=== PATIENT | male | born 1985 | race Caucasian/White ===

== ENCOUNTER 2017-04-02 08:08 | Emergency (ER) | payer OTHER, MEDICAID ==
--- NOTE | 2017-04-02 08:33 | EDPHY ---
H & P Smoking Status: Current every day smoker Time Seen by Provider: 04/02/17 08:30 HPI/ROS: CHIEF COMPLAINT: Mental health hold for grave disability HISTORY OF PRESENT ILLNESS: Patient arrives from [facility] on a mental health hold for grave disability. He has history of schizoaffective disorder and according to the hold he believes that he is "president of the [place] president and [place]uk[place]inder of " and not sleeping and eating hemlock. Patient tells me he had vomiting and diarrhea last night and that is why he is here. He denies currently any acute medical complaints except some mild nausea. He is under a court order for long-term certification for treatment for mental illness. His current medications include lithium, Artane, Klonopin, and perphenazine. REVIEW OF SYSTEMS: Eye: no change in vision ENT: no sore throat Cardiac: no chest pain or syncope Pulmonary: no cough or SOB Abdomen: HPI Musculoskeletal: no back pain Skin: no rash Neuro: no headache Constitutional: no fever : no urinary symptoms A comprehensive 10 point review of systems is otherwise negative aside from elements mentioned in the history of present illness. PAST MEDICAL HISTORY: Schizoaffective disorder per psych DC summary 08/28/16 Social history: Smoker denies alcohol General Appearance: Alert and conversant, cooperative. Eyes: No scleral icterus. ENT, Mouth: Normal mucous membranes. Respiratory: Normal respiratory effort, breath sounds equal, lungs are clear to auscultation. Cardiovascular: Regular rate and rhythm. Gastrointestinal: Abdomen is soft and non tender. Neurological: Alert and oriented x3. Normally conversant. Face symmetric, normal movement and sensation in all extremities. Skin: Warm and dry, no rashes. Musculoskeletal: No peripheral edema and no joint swelling. Psychiatric: Not agitated. Emergency Department course/MDM: Arrives on a mental health hold. Plan for screening labs and psychiatric admission. 1510: Signed out to [facility] with inpatient psychiatric placement pending. (Krystian Hale) Constitutional: Initial Vital Signs Temperature (C) 36.8 C 04/02/17 08:08 Heart Rate 83 04/02/17 08:08 Respiratory Rate 16 04/02/17 08:08 Blood Pressure 109/79 04/02/17 08:08 O2 Sat (%) 93 04/02/17 08:08 O2 Delivery Mode Room Air Allergies/Adverse Reactions: No Known Allergies Allergy (Unverified 07/07/14 15:22) Home Medications: Medication Instructions Recorded [place] Carbonate ER [Eskalith Cr 1,350 mg PO DAILY #90 tab 08/28/16 450 mg (*)] Paliperidone Palmitate [Invega 117 mg IM ONCE #1 syr 08/28/16 Sustenna] clonazePAM [klonoPIN (*)] 1 mg PO BID PRN #30 tab 08/28/16 Medical Decision Making Care Turn Over: 2300 Care assumed by me from Dr. Woodruff pending placement. 0217 patient has been accepted [facility] by Dr. Tyler. I have completed the EMTALA. (Wesley Boogie) - Data Points Laboratory Results: Laboratory Results 04/02/17 08:21 04/02/17 08:20 04/02/17 16:25 Urine Opiates Screen NEGATIVE (NEGATIVE) Urine Barbiturates NEGATIVE (NEGATIVE) Ur Phencyclidine Scrn NEGATIVE (NEGATIVE) Ur Amphetamine Screen NEGATIVE (NEGATIVE) U Benzodiazepines Scrn NEGATIVE (NEGATIVE) Urine Cocaine Screen NEGATIVE (NEGATIVE) U Marijuana (THC) Screen NON-NEGATIVE H (NEGATIVE) Departure - Departure Disposition: Other Psych, Not [place] Clinical Impression: Schizoaffective disorder Qualifiers: Schizoaffective disorder type: unspecified Qualified Code(s): F25.9 - Schizoaffective disorder, unspecified Condition: Good Referrals: Patient,NotPresent [Unknown] - As per Instructions
[2017-04-02 08:49] LABS: % IMMATURE GRANULYOCYTES 0.4 % (0.0-1.1); ABSOLUTE IMMATURE GRANULOCYTES 0.04 10^3/uL (0.00-0.10); ADD DIFF? NO; ADD MORPH? NO; ADD SCAN? NO; ATYPICAL LYMPHOCYTE FLAG 20 (0-99); FRAGMENT RBC FLAG 0 (0-99); HEMATOCRIT 46.2 % (40.0-51.0); HEMOGLOBIN 15.8 g/dL (13.7-17.5); LEFT SHIFT FLG 10 (0-99); LIPEMIA HEMOLYSIS FLAG 90 (0-99); MEAN CELL HEMOGLOBIN 31.5 pg (27.9-34.1); MEAN CELL HEMOGLOBIN CONCENTR. 34.2 g/dL (32.4-36.7); MEAN PLATELET VOLUME 9.6 fL (8.7-11.7); PLATELET CLUMPS FLAG 0 (0-99); PLATELET COUNT 324 10^3/uL (150-400); RED BLOOD CELL COUNT 5.02 10^6/uL (4.40-6.38); RED CELL DISTRIBUTION WIDTH 12.7 % (11.5-15.2)
[2017-04-02 08:54] LABS: ANION GAP 11 mEq/L (8-16); CALCIUM 9.4 mg/dL (8.5-10.4); CARBON DIOXIDE 20 mEq/l (22-31); CHLORIDE 106 mEq/L (97-110); CREATININE 0.9 mg/dL (0.7-1.3); ETHANOL SERUM < 10 mg/dL (0-10); GLOMERULAR FILTRATION RATE > 60; GLUCOSE 97 mg/dL (70-100); LITHIUM 0.4 mEq/L (0.6-1.2); POTASSIUM 4.2 mEq/L (3.5-5.2); SODIUM 137 mEq/L (134-144)
[2017-04-03 03:34] VITALS: BP 102/65; PULSE 64; RESP 14; TEMP 98.4; O2SAT 97
== END 2017-04-03 03:34 ==
LOC: EDUNIT#
DX: F25.9 Schizoaffective disorder, unspecified (principal); F17.200 Nicotine dependence, unspecified, uncomplicated
CPT/HCPCS: 80305; G0480

== ENCOUNTER 2017-05-03 13:22 | Emergency (ER) | payer OTHER, MEDICAID ==
[2017-05-03 13:28] VITALS: RESP 18; TEMP 97.7
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
[2017-05-03 14:51] VITALS: BP 106/68; PULSE 90; O2SAT 95
== END 2017-05-03 14:50 | disposition home or self-care (01) ==
DX: S00.451A Superficial foreign body of right ear, initial encounter (principal); F17.200 Nicotine dependence, unspecified, uncomplicated; X58.XXXA Exposure to other specified factors, initial encounter

== ENCOUNTER 2017-08-27 11:06 | Emergency (ER) | payer OTHER, MEDICAID ==
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
[2017-08-27 11:49] LABS: PLATELET COUNT 298 10^3/uL (150-400)
[2017-08-27] MEDS ORDERED: NICOTINE POLACRILEX 2 MG GUM B PRN (15:44)
[2017-08-27 18:55] VITALS: O2SAT 96
[2017-08-27] MEDS ORDERED: OLANZapine 5 MG TAB PO ONE ×2 (21:37→21:43)
[2017-08-27 23:02] VITALS: BP 126/72; PULSE 89; RESP 16; TEMP 97.7
== END 2017-08-28 02:23 ==
LOC: EDUNIT# → EDSEX 11:06
DX: F31.2 Bipolar disorder, current episode manic severe with psychotic features (principal); F17.200 Nicotine dependence, unspecified, uncomplicated; Z91.14 Patient's other noncompliance with medication regimen
CPT/HCPCS: 80305; G0480

== ENCOUNTER 2018-01-01 17:19 | Emergency (ER) | payer OTHER, MEDICAID ==
[2018-01-01 17:42] VITALS: BP 129/80
[2018-01-01] MEDS ORDERED: LORAZEPAM 1 MG PREPACK#4 BTL TAKEHOME ONE (17:42)
--- NOTE | 2018-01-01 17:42 | EDPHY ---
H & P Time Seen by Provider: 01/01/18 17:31 HPI/ROS: CHIEF COMPLAINT: Anxiety HISTORY OF PRESENT ILLNESS: Patient is a 32-year-old man with a history of schizophrenia and ADD and anxiety who comes to the emergency department complaining of anxiety. He states that he is trying to stop using Kratom and feels nervous. He also initially told me that he was coming off of Prolixin but later told me that he is still taking Prolixin and is supposed to discontinue it next week. He denies suicidality homicidality, he also complains of a mild sore throat over the last few days. No fever. No cough. No sinus symptoms. He also states that his vision goes blurry feel looks at his hands to close to his face. No headache. No tenderness. No trauma. REVIEW OF SYSTEMS: Constitutional: denies: chills, fever, recent illness, recent injury EENTM: See HPI denies: double vision, nose congestion Respiratory: denies: cough, shortness of breath Cardiac: denies: chest pain, irregular heart rate, lightheadedness, palpitations Gastrointestinal/Abdominal: denies: abdominal pain, diarrhea, nausea, vomiting, blood streaked stools Genitourinary: denies: dysuria, frequency, hematuria, pain Musculoskeletal: denies: joint pain, muscle pain Skin: denies: lesions, rash, jaundice, bruising Neurological: denies: headache, numbness, paresthesia, tingling, dizziness, weakness Hematologic/Lymphatic: denies: blood clots, easy bleeding, easy bruising Immunologic/allergic: denies: HIV/AIDS, transplant EXAM: GENERAL: Well-appearing, well-nourished and in no acute distress. HEAD: Atraumatic, normocephalic. EYES: Pupils equal round and reactive to light, extraocular movements intact, sclera anicteric, conjunctiva are normal. Normal vision exam ENT: TMs normal, nares patent, oropharynx clear without exudates or erythema. Moist mucous membranes. NECK: Normal range of motion, supple without lymphadenopathy or JVD. LUNGS: Breath sounds clear to auscultation bilaterally and equal. No wheezes rales or rhonchi. HEART: Regular rate and rhythm without murmurs, rubs or gallops. ABDOMEN: Soft, nontender, normoactive bowel sounds. No guarding, no rebound. No masses appreciated. BACK: No CVA tenderness, no spinal tenderness, step-offs or deformities EXTREMITIES: Normal range of motion, no pitting or edema. No clubbing or cyanosis. NEUROLOGICAL: Cranial nerves II through XII grossly intact. Normal speech, normal gait. 5/5 strength, normal movement in all extremities, normal sensation PSYCH: Normal mood, normal affect. SKIN: Warm, dry, normal turgor, no visible rashes or lesions. Source: Patient Exam Limitations: No limitations - Personal History Tetanus Vaccine Date: JANUARY 2013 - Medical/Surgical History Hx Asthma: No Hx Chronic Respiratory Disease: No Hx Diabetes: No Hx Cardiac Disease: No Hx Renal Disease: No Hx Cirrhosis: No Hx Alcoholism: No Hx HIV/AIDS: No Hx Splenectomy or Spleen Trauma: No Other PMH: ADD. Manic depression, schizophrenia - Family History Significant Family History: No pertinent family hx - Social History Smoking Status: Current every day smoker Alcohol Use: Sober Drug Use: Other Constitutional: Initial Vital Signs Temperature (C) 36.2 C 01/01/18 17:35 Heart Rate 86 01/01/18 17:35 Respiratory Rate 18 01/01/18 17:35 Blood Pressure 129/80 H 01/01/18 17:35 O2 Sat (%) 96 01/01/18 17:35 Allergies/Adverse Reactions: No Known Allergies Allergy (Verified 05/03/17 13:25) Home Medications: Medication Instructions Recorded [place] Carbonate ER [Eskalith Cr 1,350 mg PO DAILY #90 tab 08/28/16 450 mg (*)] Buspar (*) 01/01/18 Cogentin 01/01/18 Prolixin 10 MG (*) 01/01/18 Propranolol HCl 01/01/18 Medical Decision Making ED Course/Re-evaluation: Encouraged the patient to use Tylenol and cough drops for his sore throat. It does not appear toxic. He does request some Ativan for his anxiety. I will give him a take-home pack. He will follow up with his counselor in the next few days to assess for medication adjustment. We discouraged illicit substance ingestion. He does not feel suicidal or homicidal. Differential Diagnosis: Partial list of the Differential diagnosis considered include but were not limited to; anxiety, schizophrenia, pharyngitis and although unlikely based on the history and physical exam, I also considered tumor, infection, strep throat , abscess, stroke, retinal detachment, concussion. I discussed these differential diagnoses and the plan with the patient as well as the usual and expected course. The patient understands that the diagnosis is provisional and that in medicine we are not always correct and that further workup is often warranted. Usual and customary warnings were given. All of the patient's questions were answered. The patient was instructed to return to the emergency department should the symptoms at all worsen or return, otherwise to followup with the physician as we discussed. - Data Points Medications Given: Discontinued Medications Ibuprofen (Motrin) 600 mg PO ONCE ONE Stop: 01/01/18 17:51 Last Admin: 01/01/18 18:04 Dose: 600 mg Lorazepam (Ativan 1 Mg Prepack#4) 1 btl TAKEHOME EDNOW ONE Stop: 01/01/18 17:43 Last Admin: 01/01/18 18:05 Dose: 1 btl Departure - Departure Disposition: Home, Routine, Self-Care Clinical Impression: Anxiety about health, Sore throat (viral) Schizophrenia Qualifiers: Schizophrenia type: unspecified Qualified Code(s): F20.9 - Schizophrenia, unspecified Condition: Good Instructions: Lorazepam (By mouth), Pharyngitis (ED), Anxiety (ED) Referrals: Barry Tyler MD [Primary Care Provider] - 2-3 days, call for appt. [facility] [[facility]] - 1 day without fail
[2018-01-01] MEDS ORDERED: IBUPROFEN 200 MG TAB PO ONE (17:50)
== END 2018-01-01 18:12 | disposition home or self-care (01) ==
LOC: CED 17:19
DX: F41.9 Anxiety disorder, unspecified (principal); F20.9 Schizophrenia, unspecified; J02.8 Acute pharyngitis due to other specified organisms; B97.89 Other viral agents as the cause of diseases classified elsewhere; F17.200 Nicotine dependence, unspecified, uncomplicated

== ENCOUNTER 2018-02-17 18:27 | Inpatient (IN) | payer OTHER, MEDICAID ==
--- NOTE | 2018-02-17 18:32 | EDPHY ---
H & P Source: Patient Exam Limitations: No limitations - Personal History Tetanus Vaccine Date: JANUARY 2013 - Medical/Surgical History Hx Asthma: No Hx Chronic Respiratory Disease: No Hx Diabetes: No Hx Cardiac Disease: No Hx Renal Disease: No Hx Cirrhosis: No Hx Alcoholism: No Hx HIV/AIDS: No Hx Splenectomy or Spleen Trauma: No Other PMH: ADD. Manic depression, schizophrenia - Social History Smoking Status: Current every day smoker Time Seen by Provider: 02/17/18 18:32 HPI/ROS: HPI: This is a 32-year-old male who presents with Chief Complaint: M1 hold Location:psych Quality: M1 hold Duration: Today Signs and Symptoms: + auditory hallucinations, no visual hallucinations, no suicidal ideation with a plan, no homicidal ideation, no paranoia Timing: Acute on chronic Severity: Severe Context: Patient is brought in by EMS on M1 hold for being gravely disabled. Patient was evaluated yesterday by crisis and was going to have hold written at that time but von had not cleared yet. Received on today and still meeting criteria for M1 hold. Diagnosis of schizoaffective disorder and is presenting with psychotic thinking, responding to internal stimuli. Patient identifies female. Does not have the ability to be released to Street. Has a current certification for meds. Has not been taking Zyprexa and not compliant on lithium. Denies any drug or alcohol use. Modifying Factors: Comment: ROS: see HPI Constitutional: No fever, no chills, no weight loss Eyes: No blurred vision Respiratory: No shortness of breath, no cough Cardiovascular: No chest pain Gastrointestinal: No nausea, no vomiting, no diarrhea Genitourinary: No dysuria Extremities: No myalgias Neurologic: No weakness, no numbness Skin: No rashes Hematologic: No bruising, no bleeding MEDICAL/SURGICAL/SOCIAL HISTORY: Medical history: ADD, Manic depression, schizophrenia Social history: Homeless. Family history noncontributory. CONSTITUTIONAL: Untidy adult white male, awake and alert, no obvious distress HEENT: Atraumatic and normocephalic, PERRL, EOMI. Nares patent; no rhinorrhea; no nasal mucosal edema. Tympanic membranes clear. Oropharynx clear, no exudate and moist pink mucosa. Airway patent. No lymphadenopathy. No meningismus. Cardiovascular: Normal S1/S2, regular rate, regular rhythm, without murmur rub or gallop. PULMONARY/CHEST: Symmetrical and nontender. Clear to auscultation bilaterally. Good air movement. No accessory muscle usage. ABDOMEN: Soft, nondistended, nontender, no rebound, no guarding, no peritoneal signs, no masses or organomegaly. No CVAT. EXTREMITIES: 2/2 pulses, strength 5/5, no deformities, no clubbing, no cyanosis or edema. NEUROLOGICAL: no focal neuro deficits. GCS 15. SKIN: Warm and dry, no erythema. no rash. Good capillary refill. PSYCH: Poor eye contact, + flight of ideas, disorganized thought process, poor insight and judgment, + auditory hallucinations, suicidal ideation with a plan, homicidal ideation, paranoid (Laney Figueroa) Constitutional: Initial Vital Signs Temperature (C) 36.7 C 02/17/18 18:49 Heart Rate 69 02/17/18 18:49 Respiratory Rate 18 02/17/18 18:49 Blood Pressure 135/75 H 02/17/18 18:49 O2 Sat (%) 96 02/17/18 18:49 O2 Delivery Mode Room Air Allergies/Adverse Reactions: No Known Allergies Allergy (Verified 05/03/17 13:25) Home Medications: Medication Instructions Recorded Propranolol HCl [Inderal 10mg (*)] 10 mg PO DAILY@12 01/01/18 [place] Carbonate ER [Lithobid 300 1,500 mg PO DAILY 02/18/18 mg (*)] Propranolol HCl [Inderal 20mg (*)] 20 mg PO BID PRN 02/18/18 busPIRone [Buspar (*)] 30 mg PO BID 02/18/18 fluPHENAZine HCL [Fluphenazine HCl] 2.5 mg PO HS 02/18/18 Medical Decision Making ED Course/Re-evaluation: Agree with M1 hold. Labs and UDS ordered Reviewed labs and urine drug screen. Labs are grossly unremarkable. Mental health annual campaign manager recommends inpatient psychiatric treatment for stabilization. Currently looking for placement. 2345: Accepted by [address] [place] [address]. EMTALA form completed. This patient was seen under the supervision of my secondary supervising physician. I evaluated care for this patient independently. Discussed this patient with Dr. Chamorro who did not see the patient. (Laney Figueroa) I did not see this patient while he was in the emergency department. However his care was discussed with the PA while the patient was in the department. I agree with treatment plan and (Kahlil Chamorro) Differential Diagnosis: Differential diagnosis includes but is not limited to schizophrenia, tata, psychosis, intoxicant use. (Laney Figueroa) - Data Points Laboratory Results: Laboratory Results 02/17/18 19:20 02/17/18 19:20 02/17/18 19:20 TSH Pending Medications Given: Buspirone HCl (Buspar) 30 mg PO BID MED Stop: 08/17/18 10:44 Last Admin: 02/18/18 21:00 Dose: Not Given Fluphenazine HCl (Prolixin) 2.5 mg PO HS MED Stop: 08/17/18 20:59 Last Admin: 02/18/18 21:00 Dose: Not Given [place] Carbonate (Lithobid) 1,500 mg PO DAILY MED Stop: 08/17/18 10:44 Last Admin: 02/18/18 12:10 Dose: 1,500 mg Lorazepam (Ativan) 0.5 - 1 mg PO Q4HRS PRN PRN Reason: Anxiety, Able to Take PO Stop: 08/17/18 00:36 Last Admin: 02/18/18 16:46 Dose: 1 mg Departure - Departure Disposition: [facility] IP Clinical Impression: Schizophrenia, acute, Transgender Psychosis Qualifiers: Psychosis type: schizophrenia Schizophrenia type: disorganized schizophrenia Qualified Code(s): F20.1 - Disorganized schizophrenia Condition: Fair
[2018-02-17 19:41] LABS: PLATELET COUNT 271 10^3/uL (150-400)
[2018-02-18] MEDS ORDERED: LORazepam 0.5 MG TAB PO PRN (00:37)
[2018-02-18] MEDS ORDERED: MAGNESIUM HYDROXIDE 30 ML UDCUP PO PRN (00:37)
[2018-02-18] MEDS ORDERED: NICOTINE POLACRILEX 2 MG GUM B PRN (00:37)
[2018-02-18] MEDS ORDERED: MAG HYDROX/AL HYDROX/SIMETH 30 ML UDCUP PO PRN (00:37)
[2018-02-18] MEDS ORDERED: ACETAMINOPHEN 325 MG TAB PO PRN (00:37)
[2018-02-18] MEDS ORDERED: OLANZapine 5 MG TAB PO PRN (00:38)
--- NOTE | 2018-02-18 10:41 | ASMTBHMTP ---
Master Treatment Plan Master Treatment Plan Answers: Mood Instability with for: Psychosis Date: 02/18/2018 Diagnosis on Admission: Bipolar affective disorder Expected length of stay: 3-5 dyas Reason for admission: Notes: Patient is a 32 yoa male, brought to ED by EMS for "being gravely disabled." Client presents as responding to internal stimuli and Auditory Hallucinations. Client has a significant history of mental health issues. Toxic screen negative for all substances. Patient's stated presenting problems: Notes: "Under-cover Android Bullshit." Patient's goals for treatment: Notes: "Maintain current medication regimen and stay safe, work on self discovery and my faith(s)." Patient's strengths: Notes: "a lot" Identify supports outside of hospital: Notes: "Family and Friends and my many girlfiriends." Initial disposition plan/considerations: Notes: "Go home to [facility] and buy a pack of cigerattes." Master Treatment Plan Required Signatures Psychiatrist signature: Answers: Benitez Swanson MD: RN on-shift signature: Answers: RN: Patient signature: Answers: Patient: Date Signed: 02/18/2018 10:41 AM Electronically Signed By:Pete Hernandez
[2018-02-18] MEDS ORDERED: PROPRANOLOL HCL 20 MG TAB PO PRN (10:42)
[2018-02-18] MEDS: LITHIUM CARBONATE ER 300 MG TAB PO SCH (12:10)
[2018-02-18] MEDS: busPIRone 15 MG TAB PO SCH ×3 (12:13→21:00)
--- NOTE | 2018-02-18 12:30 | ASMTTLCEVL ---
TLC Evaluation - Basic Information Evaluation Start Date and 02/18/2018 11:40 AM Time Hospital Status Answers: M1 Hold 72-hr M1 Hold Start Date 02/17/2018 05:00 PM and Time Patient statement Notes: Pt evaluated by [facility]. This senior mortgage underwriter did not perform this evaluation. This is a late entry. Narrative Notes: Pt is a 32 year old transgender female who was brought to [facility] ed by EMS on a M1 hold for being gravely disabled. Per [facility] report, JOANNE Steven requested eval of pt who was at [facility] for theft and probation. Pt has court date tomorrow and Caroline suspects that pt may be gravely disabled and require hospitalization prior to being released back to [facility]. While in [facility], pt was seen in the yard having animated conversation with no one and was found naked in cell today. Per [facility] band bias machine operator, pt presented with flat mechanical affect and laughs, stares and raises his voice at inappropriate times. Pt is cooperative and uncooperative at others. Pt appears to be responding to internal stimuli and his flat adding machine mechanic affect and long pauses to questions, inappropriate staring and laughing. Pt is currently on extended long-term certification. Diagnosis History Notes: Pt has a hx of schizoaffective bipolar type. Prior suicide attempts Notes: Pt denies SI, plan and intent. Pt reported one SA 3 months ago and raises voices and says, " I don't want to talk about it." Prior hospitalizations Notes: Per [facility] report, " Pt has been hospitalized before. Please see [facility]." No further information provided. Treatment Responses Notes: Unknown. History of violence Notes: Pt denies. Therapist: Caroline Jimenez Psychiatrist: Dr. Rodriguez Medications (name, dosage, route, freq uency) Notes: Pt was prescribed Zyprexa and has refused his medication since 01/27/18. Dr. Rodriguez came to see pt in correction and changed his medication to Benoit only. Pt reports being med-compliant with Benoit. Per Bambi, pt is prescribed Benoit, Propanolol and Zyprexa. Allergies/Reaction Notes: NKA Sleep Notes: Pt reports sleeping 8 hours a day. Appetite Notes: Pt reports eating 3 meals a day. Medical/Surgical history Notes: None reported. Substance use history (frequency, intensity, his tory, duration) Notes: Pt denies any drug use. Per [facility], pt was drinking in between back to back correction times. Pt was jailed on 01/26 and released and then jailed again immediately on 01/27. Family composition Notes: No information provided in [facility] report. Need for family Answers: No participation in patient's care Family psychiatric/substance abuse history Notes: Pt denies MOC and FOC have mental health issues. Developmental history Notes: Pt reported that he had a "great childhood" but when asked if he experienced any abuse, pt leans closer to CIW and says loudly and forcefuly, " I don't want to talk about it." Pt reported to [facility] worker that his parents still live together, but on 01/01/18 at his [place], he reported that her POC are . Abuse concerns Answers: Past Marital status/children Notes: Unmarried, no children. Living situation Notes: Pt lives in an apt in [place]. Sexual history/orientation Notes: Pt is a transgender female. Peer support/family strengths Notes: Unknown- information not provided. Education level/history Notes: Information not provided. Work history Notes: Pt is unemployed. Notes: N/A Legal Notes: Pt was at [facility] for theft and probation violation. Pt has a court date on 02/18/18. Religion/Spiritual Notes: Information not provided. Leisure Notes: Information not provided. Collateral Notes: [facility] TLC Evaluation - Mental Status Exam Affect: Answers: Flat Behavior: Answers: Cooperative Uncooperative Speech: Answers: Delayed Insight: Answers: Poor Judgement: Answers: Poor Depression Answers: Flat Affect Signs/Symptoms: Hallucinations: Answers: Auditory Pt reported to have Answers: No suicidal/self-injuring ideation/behavior? Pt reported to be making Answers: No suicidal/self-injuring threats? Pt reported to have Answers: No aggression/assault ideation/behavior? Pt reported to be making Answers: No aggression/assault threats? Pt exhibits inability to Answers: Yes care for self/grave disability? TLC Evaluation - Suicide/Homicide Risk Suicide Risk Factors: Answers: Lack/Loss of Employment Legal Difficulties Psychotic Disorder Schizoaffective Disorder Homicide/violence risk Answers: None factors: Current Suicidal Answers: No Ideation? Current Suicidal Ideation Answers: No in the Past 48 Hours? Current Suicidal Ideation Answers: No in the Past Month? Current Suicidal Answers: No Ideation, Worst Ever? Ranking of patient's Answers: Moderate suicidal risk: Ranking of patient's Answers: Low homicidal risk: TLC Evaluation - Wrap-up AXIS I Diagnosis (include DSM-V and ICD-10 codes), must also be entered in [employer], which is the source of truth. Notes: SCHIZOAFFECTIVE DISORDER, BIPOLAR TYPE 295.70 (F25.0) Evaluation End Date and 02/18/2018 12:20 PM Time (HH:MM): Date Signed: 02/18/2018 12:29 PM Electronically Signed By:Dali Avalos
--- NOTE | 2018-02-18 12:35 | ASMTTCLDSP ---
TLC Discharge Disposition Disposition: Answers: Admit Discharge Concerns/Recommendations: Notes: IN CONSULTATION WITH ED PHYSICIAN, CL HUYNH MD, AND ON-CALL PSYCHIATRIST, BENITEZ SWANSON MD, BOTH CONCURRED THAT PT DOES APPEAR TO MEET 27-65 CRITERIA REQUIRING INPATIENT HOSPITALIZATION PT DOES APPEAR TO BE AN IMMINENT RISK OF HARM TO GRAVELY DISABLED DUE TO A MENTAL ILLNESS CONDITION. Was patient given the Answers: Yes Inpatient Behavioral Health Prohibited Belongings List while in the ED? For inpatient Benitez Swanson MD admission, the following psychiatrist agreed to accept patient for admission to Behavioral Health ([facility]): Type of Hold: Answers: M1/72-hour Hold Hold initiated by: Answers: Other Notes: Bambi LUNDBERG LPC Date Signed: 02/18/2018 12:33 PM Electronically Signed By:Dali Avalos
--- NOTE | 2018-02-18 14:40 | BCON ---
[f rep st] BEHAVIORAL HEALTH CONSULTATION INTERNAL MEDICINE CONSULTATION DATE OF CONSULTATION: 02/18/2018 REFERRING PHYSICIAN: Benitez Swanson MD REASON FOR REFERRAL: Medical clearance for inpatient behavioral health stay. HISTORY OF PRESENT ILLNESS: This patient was brought to the emergency department on an M1 hold for being gravely disabled. He had been evaluated the day before by a mental health crisis facility. He has a diagnosis of schizoaffective disorder and had presented with psychotic thinking and responding to internal stimuli. He was evaluated by the mental health team and admitted for further psychiatric care. He is currently without any acute medical complaints. PAST MEDICAL HISTORY: He denies any history of medical illnesses. PAST SURGICAL HISTORY: He denies any history of surgeries. MEDICATIONS: He takes lithium, p.r.n. olanzapine, and p.r.n. propranolol. Per the emergency department note, he has not been compliant with his medications. ALLERGIES: There are no known drug allergies. SOCIAL HISTORY: He was not very cooperative with conversation. He is a smoker. He occasionally uses alcohol. He lives alone. FAMILY HISTORY: Noncontributory. REVIEW OF SYSTEMS: Somewhat limited. He denies weight loss, though chart review shows approximately 4.5 kg weight loss since April of last year. He is emphatic that he is at his healthy baseline weight. He denies cough or dyspnea. He denies nausea, vomiting, constipation, or diarrhea. He reports a good appetite. Otherwise a 10-point review of systems to the extent it could be completed was negative. PHYSICAL EXAM: VITAL SIGNS: Blood pressure is 106/73, heart rate is 72, respiratory rate is 16, oxygen saturation is 96% on room air, temperature is 36.7 degrees centigrade. His weight is 59 kg for a body mass index of 17.6. GENERAL: This is a thin man who appears his chronologic age, sitting up in bed , dressed in street clothes, cooperative and in no acute distress. He makes a sudden move and grabs papers that are sitting next to him on the bed and moves them in front of him as if the examiner was going to take them from him. HEENT : Extraocular movements are intact. Pupils are equal, round, and reactive to light. Mucous membranes are moist. Dentition is in good condition. He has noncrowded airway, Mallampati class 2. NECK: Supple. HEART: There is a regular rate and rhythm with no murmurs, rubs, or gallops. LUNGS: Clear to auscultation bilaterally. ABDOMEN: Benign. EXTREMITIES: There is no cyanosis , clubbing, or edema. NEUROLOGIC: He is alert. Orientation was not checked. Cranial nerves 2-12 are grossly intact. There is no focal weakness and sensation is intact to light touch. LABORATORY STUDIES: From yesterday, CBC showed an elevated white count at 10.79. There was no left shift. There was a predominance of absolute neutrophils. Serum chemistry showed a slightly low carbon dioxide of 19. Otherwise, renal function and electrolytes were within normal limits. Glucose was slightly elevated at 104, but this was likely not fasting. Toxicology screen in the urine was negative for any substances of abuse. The serum lithium level was therapeutic at 0.9 and ethyl alcohol was undetectable. ASSESSMENT/RECOMMENDATIONS: 1. Mental health issues pending further evaluation and management per Psychiatry and the mental health team. 2. Tobacco dependence syndrome. He was advised on smoking cessation. 3. Weight loss. I will add a TSH to labs that were drawn yesterday. Otherwise , would advise observing for normal caloric intake. I see no medical contraindications to this patient's stay on the inpatient behavioral health unit or to any psychiatric medications or procedures. Thank you very much for including me in the care of this patient and please do not hesitate to contact me or the hospitalist service should there be need for further medical evaluation. /[id number]/MODL MTDD
--- NOTE | 2018-02-18 18:11 | BAPA ---
[f rep st] ADMISSION PSYCHIATRIC ASSESSMENT DATE OF SERVICE: 02/18/2018 CHIEF COMPLAINT: Not offered. HISTORY OF PRESENT ILLNESS: Patient is a 32-year-old male known to us from previous psychi atric admissions to this facility. He has a diagnosis of schizoaffective disorder and is known to rodas ve rather chronic psychosis, as well as severe recurrent tata. He is managed by [facility] and sees Dr. Rodriguez but has reportedly not been taking his medications. He has history of cannabis abuse in the past and his urine drug screen was negative for all substances now. He is seen in the Behavioral Services inpatient unit but is quite distracted, elevated, and somewhat silly. He dances around and high fives me but does not give any meaningful information. The TLC report is not found in the chart and I have very little other information to go from at this time. It is repo rted in the ER records that he has been noncompliant with his medications, but it is unclear for how long. His lithium level drawn at the time of admission to the emergency department was 0.9, so it is unclear whether he had just recently taken it or if this is incorrect information. The patient's pr evious history would indicate that he has been noncompliant and has likely been using some amount of marijuana or other substances as this has been his pattern in the past, but I cannot confirm that at this time. PAST PSYCHIATRIC HISTORY: Significant for several previous admissions to this facility including las t from 08/06/2016 to 08/28/2016, and before that 12/21/2015 to 01/21/2016, and 09/12/2015 to 09/20/19 16, and 08/08/2014 to 08/14/2014. He was also admitted to [facility] on 04/25/2015. He is man aged through [facility] and sees Dr. Sophie Rodriguez. ALLERGIES: No known medical allergies, though he did state to the nurse that Prolixin gives him "a r nelson on my brain." CURRENT MEDICATIONS: Patient states he is taking Zyprexa 5 mg p.r.n. and BuSpar p.r.n. The records from [facility] indicate that he is taking propranolol 10 mg daily at noon on a s cheduled basis and 20 mg twice daily p.r.n. for akathisia. The patient states he is taking 1450 mg o f lithium at bedtime, but the record indicates he is taking 1500 mg daily. The patient denies taking fluphenazine, though his record indicates he is taking 2.5 mg at bedtime. The patient states he is taking BuSpar p.r.n. and the record indicates he is taking 30 mg twice daily on a scheduled basis. PAST MEDICAL HISTORY: Noncontributory. SOCIAL HISTORY: Patient lives in [place]. He has previously had secure housing in an apartment, but it is unclear whether this is continues at this time. His primary support in the past has been his mother and he has maintained jobs in retail sales, but it is unclear whether he is employed at this [employer]. ADMITTING LABORATORY: CBC shows a white count up at 10.79, otherwise normal. Serum chemistries show ed no significant abnormalities. Urine drug screen is negative for all substances. Alcohol is less than detectable. [place] level drawn on 02/18 at 0800 was 0.9. MENTAL STATUS EXAMINATION: A thin, though healthy-appearing male. He is somewhat dishevel ed. He is friendly and interactive, though bizarre. His affect is elevated, labile, and he is noted to be frequently dancing in the hallway. His mood is described as "great." Thought process is grajeda ential. Thought content reveals grandiosity. Unable to test patient's orientation, though he rememb ers me by name. Patient does not voice any thoughts of suicide, homicide, or violence. Patient's in sight and judgment appear to be very poor. IMPRESSION: Schizoaffective disorder, bipolar type, chronic with acute exacerbation; chronic illness ; recurrent illness; medication noncompliance; history of cannabis use disorder, severe, current stat us unknown; marginal social supports. The patient is a 32-year-old male with chronic mental illness, who presents at this time in what appears to be a manic and psychotic state. The history is unclear as mentioned above, though f actors that have been consistent in the past have been medication noncompliance and substance use. PLAN: 1. Admit to the [facility] inpatient unit on an M1 hold. 2. Contact [facility] as he is supposedly on a certification with court-ordered medicati ons, though we do not have that documentation. 3. Restart his previous outpatient medications as per his records of [facility]. 4. Maintain close behavioral controls and observation as the patient has made dramatic complaints an d accusations toward staff in the past. 5. Estimated length of stay is 7-10 days. 6. /[id number]/MODL
[2018-02-19] MEDS: LITHIUM CARBONATE ER 300 MG TAB PO SCH (08:10)
[2018-02-19] MEDS: busPIRone 15 MG TAB PO SCH (08:10)
--- NOTE | 2018-02-19 10:42 | ASMTBHDC ---
Notes Note: Notes: CC contacted Caroline Macias at requesting client's long-term certification ppw, court-ordered medications, etc. Caroline will assit; meanwhile this CC was transferred to [facility] records at , spoke to records department and provided all necessary return contact information. They noted that "we will fax you all of his ppw in a couple of mintues." CC waiting to receive ppw from [facility] and will place in chart as well as alert [place] team on unit. Date Signed: 02/19/2018 10:42 AM Electronically Signed By:Pete Hernandez
[2018-02-19] MEDS ORDERED: LORazepam 2 MG/ML INJ IM PRN (12:22)
[2018-02-19] MEDS ORDERED: OLANZapine DISINTEGR 10 MG TAB PO PRN (12:22)
[2018-02-19] MEDS ORDERED: OLANZapine 10 MG/2 ML VIAL IM PRN (12:22)
[2018-02-19] MEDS ORDERED: LORazepam 1 MG TAB PO PRN (12:22)
--- NOTE | 2018-02-19 12:26 | ASMTCMCOM ---
CM Note CM Note Notes: CC received call from [facility] program providing CC with additional collateral information on client. Client is transgender and prefers to go by the name "Ivy," and is a current [facility] client, open to Caroline Macias and Dr. Rodriguez. medication list contains: lithium er 300 mg, [id number] PO BID- PRN, propranolol 10mg PO daily, prolixin 2.5 mg PO HS & Buspar 30 mg BID. Additionally, client's cra officer's is Janell Menjivar and can be reached at [phone], etc. Client was last seen by Dr. Rodriguez on January 12 of this year. Clt's MOC (Cristela) lives in [place] and can be reached at . CC will follow up with discharge planning, etc. No additional information.* CC spoke to client briefly during check-in. Client presents as delusional, disorganized, restricted affect and bizarre body language. MTP completed and filed. Date Signed: 02/19/2018 12:25 PM Electronically Signed By:Pete Hernandez
--- NOTE | 2018-02-19 17:40 | SOAPPROG ---
SOAP Progress Note Assessment/Plan: Assessment: Plan: 02/19/18 17:39 Schizoaffective D/o: remains manic, psychotic. Now aggressive. Received E- meds with good effect. Will continue. Will d/c buspirone and fluphenazine in favor of scheduled and prn Zyprexa. Subjective: Pt seen, discussed with staff. This morning he was animated, intrusive, elevated, boisterous. This escalated in my absence from the unit to more severe agitation, threatening, verbal aggression. Required E-meds and seclusion. Viewed in seclusion at 1430. Sleeping and crying intermittently. Refusing BuSpar and fluphenazine. Objective: Vital Signs Temp Pulse Resp BP Pulse Ox 36.7 C 75 14 112/62 95 02/17/18 23:10 02/19/18 13:58 02/19/18 13:58 02/19/18 13:58 02/19/18 13:58 MSE: Disheveled, agitated. Affect is elevated, labile. Mood is "great." TP tangential. TC reveals grandiose and paranoid delusions. - Time Spent With Patient Time Spent With Patient: 25" ICD10 Worksheet Patient Problems: Problems Problem Status Onset Psychosis Acute Schizophrenia, acute Acute Transgender Acute Acute psychosis Acute Bipolar affective disorder, currently manic, severe, with psychotic features Acute Schizophrenia Acute
[2018-02-19] MEDS: OLANZapine DISINTEGR 10 MG TAB PO SCH (18:10)
[2018-02-20] MEDS: LITHIUM CARBONATE ER 300 MG TAB PO SCH (08:58)
[2018-02-20] MEDS ORDERED: OLANZapine 10 MG/2 ML VIAL IM PRN (09:20)
[2018-02-20] MEDS ORDERED: LORazepam 2 MG/ML INJ IM PRN (09:26)
--- NOTE | 2018-02-20 15:41 | SOAPPROG ---
SOAP Progress Note Assessment/Plan: Assessment: Per Dr. Swanson's note: 02/19/18 17:39 Schizoaffective D/o: remains manic, psychotic. Now aggressive. Received E- meds with good effect. Will continue. Will d/c buspirone and fluphenazine in favor of scheduled and prn Zyprexa. Subjective: Pt seen, discussed with staff. This morning he was animated, intrusive, elevated, boisterous. This escalated in my absence from the unit to more severe agitation, threatening, verbal aggression. Required E-meds and seclusion. Viewed in seclusion at 1430. Sleeping and crying intermittently. Refusing BuSpar and fluphenazine. Plan: 02/20/18 15:37 1. Patient less agitated, no unsafe or threatening behaviors. 2. Patient still disorganized and labile, but not as emotional or irritable as yesterday. No yelling, curing or name-calling today. 3. Patient on COM, has taken all meds PO today. 4. CCM Subjective: Met with patient, reviewed chart and d/w staff. Patient has been isolating in room most of the day. He did come out briefly after lunch. MD tried to speak to patient, but he was very disorganized and seemed distracted. He kept looking around the common area and pacing. No outbursts or crying spells. Objective: Vital Signs Temp Pulse Resp BP Pulse Ox 36.7 C 82 16 107/66 96 02/20/18 06:00 02/20/18 06:00 02/20/18 06:00 02/20/18 06:00 02/20/18 06:00 MSE: Affect: Labile, less emotional Mood: No response TP: Disorganized TC: Denies any SI/HI, denies any AH/VH Insight/Judgment: Impaired - Time Spent With Patient Time Spent With Patient: 15" - Pending Discharge Pending Discharge Within 24 Hours: No Pending Discharge Within 48 Hours: No ICD10 Worksheet Patient Problems: Problems Problem Status Onset Psychosis Acute Schizophrenia, acute Acute Transgender Acute Acute psychosis Acute Bipolar affective disorder, currently manic, severe, with psychotic features Acute Schizophrenia Acute
[2018-02-20] MEDS: OLANZapine DISINTEGR 10 MG TAB PO SCH (20:01)
[2018-02-21] MEDS: LITHIUM CARBONATE ER 300 MG TAB PO SCH (09:34)
--- NOTE | 2018-02-21 13:53 | SOAPPROG ---
SOAP Progress Note Assessment/Plan: Assessment: Per Dr. Swanson's note: 02/19/18 17:39 Schizoaffective D/o: remains manic, psychotic. Now aggressive. Received E- meds with good effect. Will continue. Will d/c buspirone and fluphenazine in favor of scheduled and prn Zyprexa. Subjective: Pt seen, discussed with staff. This morning he was animated, intrusive, elevated, boisterous. This escalated in my absence from the unit to more severe agitation, threatening, verbal aggression. Required E-meds and seclusion. Viewed in seclusion at 1430. Sleeping and crying intermittently. Refusing BuSpar and fluphenazine. Plan: 02/20/18 15:37 1. Patient less agitated, no unsafe or threatening behaviors. 2. Patient still disorganized and labile, but not as emotional or irritable as yesterday. No yelling, curing or name-calling today. 3. Patient on COM, has taken all meds PO today. 4. [facility] 02/21/18 13:48 1. Patient still labile, but no agitation or aggression. Brief altercation with staff about TV, but patient did eventually lower volume per staff request. 2. Patient does not attend groups. 3. Will reinstate IM meds as backup per court order. They were d/c'd by pharmacy by mistake. 4. [facility] Subjective: Met with patient, reviewed chart and d/w staff. Patient was in his room drawing at his desk most of the AM. After lunch, he came out to day area and was watching TV. Staff had to prompt patient to lower volume on TV. Patient became irritable and started arguing with staff, but eventually lowered TV volume. MD attempted to have conversation with patient, but he avoided making eye contact, and said he wanted to watch TV. Staff report patient was up most of the night, sometimes "twirling" in hallway. Slept only 2.5 hrs. Objective: Vital Signs Temp Pulse Resp BP Pulse Ox 36.3 C 90 16 104/72 96 02/21/18 05:25 02/21/18 05:25 02/21/18 05:25 02/21/18 05:25 02/21/18 05:25 MSE: Affect: Labile, irritable Mood: Irritable TP: Disorganized TC: Denies any SI/HI, no AH/VH Insight/Judgment: Poor - Time Spent With Patient Time Spent With Patient: 15" - Pending Discharge Pending Discharge Within 24 Hours: No Pending Discharge Within 48 Hours: No ICD10 Worksheet Patient Problems: Problems Problem Status Onset Psychosis Acute Schizophrenia, acute Acute Transgender Acute Acute psychosis Acute Bipolar affective disorder, currently manic, severe, with psychotic features Acute Schizophrenia Acute
--- NOTE | 2018-02-21 14:03 | ASMTBHDC ---
Notes Note: Notes: Patient slept 2.5 hours last night. Her reports that her is feeling better, her can focus better, his appetite is batter and her thought process is clear. She said that she likes the Art groups, but is not currenly attending groups due to impulsive behaviors. She lives in [place] and is part of the [facility] program at [facility]. Date Signed: 02/21/2018 02:02 PM Electronically Signed By:Jaylene Newberry
[2018-02-21] MEDS: OLANZapine DISINTEGR 10 MG TAB PO SCH (20:17)
[2018-02-22] MEDS: LITHIUM CARBONATE ER 300 MG TAB PO SCH (08:30)
--- NOTE | 2018-02-22 16:34 | SOAPPROG ---
SOAP Progress Note Assessment/Plan: Assessment: Plan: 02/19/18 17:39 Schizoaffective D/o: remains manic, psychotic. Now aggressive. Received E- meds with good effect. Will continue. Will d/c buspirone and fluphenazine in favor of scheduled and prn Zyprexa. 02/22/18 16:34 Schizoaffective D/o: Remains manic, psychotic. Improving slowly. CCM. Subjective: Pt seen, discussed with staff. Minimally interactive with me. Appears distracted, internally preoccupied. Offers no c/o's. No behavioral issues this shift. Sleep remains marginal. Compliant with scheduled meds. Remains volatile, impulsive. Objective: Vital Signs Temp Pulse Resp BP Pulse Ox 36.6 C 71 16 100/68 98 02/22/18 05:46 02/22/18 05:46 02/22/18 05:46 02/22/18 05:46 02/22/18 05:46 MSE: Elevated, hyperactive with posing, dancing. Affect is expansive. Mood is "grand." TP disorganized. TC reveals continued paranoid and grandiose delusions, likely AH's. - Time Spent With Patient Time Spent With Patient: 15" ICD10 Worksheet Patient Problems: Problems Problem Status Onset Psychosis Acute Schizophrenia, acute Acute Transgender Acute Acute psychosis Acute Bipolar affective disorder, currently manic, severe, with psychotic features Acute Schizophrenia Acute
[2018-02-22] MEDS: OLANZapine DISINTEGR 10 MG TAB PO SCH (21:37)
[2018-02-23] MEDS: LITHIUM CARBONATE ER 300 MG TAB PO SCH (09:09)
--- NOTE | 2018-02-23 14:30 | SOAPPROG ---
SOAP Progress Note Assessment/Plan: Assessment: Plan: 02/19/18 17:39 Schizoaffective D/o: remains manic, psychotic. Now aggressive. Received E- meds with good effect. Will continue. Will d/c buspirone and fluphenazine in favor of scheduled and prn Zyprexa. 02/22/18 16:34 Schizoaffective D/o: Remains manic, psychotic. Improving slowly. CCM. 02/23/18 14:29 Schizoaffective D/o: Notable improvement today. CCM. Subjective: Pt seen, discussed with staff. Described as less agitated, less irritable, but still impulsive, elevated, grandiose. Able to calmly talk to me without escalation. States he needs to continue journaling "to get my head straight." Plans to return to his home when d/c'd. Agrees to continue to see Dr. Rodriguez and [facility]'s staff. Objective: Vital Signs Temp Pulse Resp BP Pulse Ox 36.4 C 67 16 102/71 97 02/23/18 06:00 02/23/18 06:00 02/23/18 06:00 02/23/18 06:00 02/23/18 06:00 - Time Spent With Patient Time Spent With Patient: 25" ICD10 Worksheet Patient Problems: Problems Problem Status Onset Psychosis Acute Schizophrenia, acute Acute Transgender Acute Acute psychosis Acute Bipolar affective disorder, currently manic, severe, with psychotic features Acute Schizophrenia Acute
[2018-02-23] MEDS: OLANZapine DISINTEGR 10 MG TAB PO SCH (19:41)
[2018-02-23] MEDS: LORazepam 1 MG TAB PO PRN (23:02)
[2018-02-24] MEDS: LITHIUM CARBONATE ER 300 MG TAB PO SCH (10:12)
--- NOTE | 2018-02-24 15:18 | SOAPPROG ---
SOAP Progress Note Assessment/Plan: Assessment: Plan: 02/19/18 17:39 Schizoaffective D/o: remains manic, psychotic. Now aggressive. Received E- meds with good effect. Will continue. Will d/c buspirone and fluphenazine in favor of scheduled and prn Zyprexa. 02/22/18 16:34 Schizoaffective D/o: Remains manic, psychotic. Improving slowly. [facility]. 02/23/18 14:29 Schizoaffective D/o: Notable improvement today. [facility]. 02/24/18 15:17 Schizoaffective D/o: Continued improvement. Will discuss possible Prolixin dec. with him. [facility]. Subjective: Pt seen, discussed with staff. Remains generally calm, compliant with treatment. Offers no c/o's. No behavioral issues. I discussed case with Dr. Rodriguez who recommends ALVARENGA due to inability to keep pt stable on oral meds only. He remains against this. She recommends returning to Prolixin. Objective: Vital Signs Temp Pulse Resp BP Pulse Ox 36.3 C 65 16 106/70 97 02/24/18 07:03 02/24/18 07:03 02/24/18 07:03 02/24/18 07:03 02/24/18 07:03 MSE: Calm, coop, guarded. Affect is constricted, stable, apparently with effort. Mood is "really good thanks." TP generally linear, though struggles to give in-depth answers to questions. TC reveals ongoing paranoid and grandiose thoughts, but less prominent and intrusive. - Time Spent With Patient Time Spent With Patient: 15" ICD10 Worksheet Patient Problems: Problems Problem Status Onset Psychosis Acute Schizophrenia, acute Acute Transgender Acute Acute psychosis Acute Bipolar affective disorder, currently manic, severe, with psychotic features Acute Schizophrenia Acute
[2018-02-24] MEDS: OLANZapine DISINTEGR 10 MG TAB PO SCH (18:54)
[2018-02-25] MEDS: LITHIUM CARBONATE ER 300 MG TAB PO SCH (08:20)
[2018-02-25] MEDS: LORazepam 1 MG TAB PO PRN ×2 (08:25→17:20)
--- NOTE | 2018-02-25 16:14 | SOAPPROG ---
SOAP Progress Note Assessment/Plan: Assessment: Plan: 02/19/18 17:39 Schizoaffective D/o: remains manic, psychotic. Now aggressive. Received E- meds with good effect. Will continue. Will d/c buspirone and fluphenazine in favor of scheduled and prn Zyprexa. 02/22/18 16:34 Schizoaffective D/o: Remains manic, psychotic. Improving slowly. [facility]. 02/23/18 14:29 Schizoaffective D/o: Notable improvement today. [facility]. 02/24/18 15:17 Schizoaffective D/o: Continued improvement. Will discuss possible Prolixin dec. with him. [facility]. 02/25/18 16:15 Schizoaffective D/o: Up and down course. Calm now. Will increase PO Zyprexa and monitor. Will discuss again the necessity of an ALVARENGA with Dr. Rodriguez per pt request. Subjective: Pt seen, discussed with staff. Exhibited irrational anger toward staff today including spitting at [employer] who she states, "Showed me disrespect." Able to engage in discussion of respect being a two-way street and how her actions are far outside the social norm and inherently disrespectful. She voices appropriate level of remorse for this. Discussed Dr. Rodriguez's recs: for ALVARENGA, specifically Prolixin. She tearfully insists that ALVARENGA's all cause her to have SI. She states she will take PO Zyprexa at whatever dose is recommended and present to [facility] team on a daily basis for dosing. I agreed to increase the Zyprexa today and discuss again with Dr. Rodriguez. Objective: Vital Signs Temp Pulse Resp BP Pulse Ox 36.3 C 65 16 106/70 97 02/24/18 07:03 02/24/18 07:03 02/24/18 07:03 02/24/18 07:03 02/24/18 07:03 MSE: Calm, appropriately interactive with me. She engages and is able to discuss medications. I discussed how his objection to ALVARENGA form of a medication he is willing to take PO is inherently irrational. He acknowledges this, but insists he cannot take an ALVARENGA. Affect is less expansive, tearful at times. Mood is "good, until now." TP generally linear for this encounter. TC reveals continues grandiose and paranoid thoughts. - Time Spent With Patient Time Spent With Patient: 25" ICD10 Worksheet Patient Problems: Problems Problem Status Onset Psychosis Acute Schizophrenia, acute Acute Transgender Acute Acute psychosis Acute Bipolar affective disorder, currently manic, severe, with psychotic features Acute Schizophrenia Acute
[2018-02-25] MEDS: OLANZapine DISINTEGR 5 MG TAB PO SCH (20:52)
[2018-02-25] MEDS: OLANZapine DISINTEGR 10 MG TAB PO SCH (20:52)
[2018-02-26] MEDS: LITHIUM CARBONATE ER 300 MG TAB PO SCH (08:09)
[2018-02-26] MEDS: LORazepam 1 MG TAB PO PRN ×2 (08:11→22:08)
--- NOTE | 2018-02-26 16:09 | SOAPPROG ---
SOEVELIO Progress Note Assessment/Plan: Assessment: Plan: 02/19/18 17:39 Schizoaffective D/o: remains manic, psychotic. Now aggressive. Received E- meds with good effect. Will continue. Will d/c buspirone and fluphenazine in favor of scheduled and prn Zyprexa. 02/22/18 16:34 Schizoaffective D/o: Remains manic, psychotic. Improving slowly. [facility]. 02/23/18 14:29 Schizoaffective D/o: Notable improvement today. [facility]. 02/24/18 15:17 Schizoaffective D/o: Continued improvement. Will discuss possible Prolixin dec. with him. [facility]. 02/25/18 16:15 Schizoaffective D/o: Up and down course. Calm now. Will increase PO Zyprexa and monitor. Will discuss again the necessity of an ALVARENGA with Dr. Rodriguez per pt request. 02/26/18 16:08 Schizoaffective D/o: Some improvement. Compliant with PO Zyprexa. Subjective: Pt seen, discussed with staff. Reports feeling "a lot calmer" today. She requests being taken off of AP so she can have the radio. This is discussed with the team and it is agreed that she remains too impulsive and volatile to do this yet. Pt is informed of this and told we will reassess in 24 hours. No aggressive bx's today. Objective: Vital Signs Temp Pulse Resp BP Pulse Ox 36.7 C 87 16 129/97 H 93 02/26/18 05:21 02/26/18 05:21 02/26/18 05:21 02/26/18 05:21 02/26/18 05:21 - Time Spent With Patient Time Spent With Patient: 15" ICD10 Worksheet Patient Problems: Problems Problem Status Onset Psychosis Acute Schizophrenia, acute Acute Transgender Acute Acute psychosis Acute Bipolar affective disorder, currently manic, severe, with psychotic features Acute Schizophrenia Acute
[2018-02-26] MEDS: OLANZapine DISINTEGR 10 MG TAB PO SCH (20:52)
[2018-02-26] MEDS: OLANZapine DISINTEGR 5 MG TAB PO SCH (20:53)
[2018-02-27] MEDS: LITHIUM CARBONATE ER 300 MG TAB PO SCH (08:17)
--- NOTE | 2018-02-27 13:37 | ASMTBHDC ---
Notes Note: Notes: Pt. reports feeling "goog". Pt. stated she slept well, sleeping 7 hours. Pt. reports her medication making her feel sleepy, which is something she doesn't like. Pt. stated she is attending groups and enjoys art group. Pt. stated her goals for the weekend are to "continue writing and working on computer design". Pt. denied SI, HI, AVH and paranoia. Pt. is medication compliant. Date Signed: 02/27/2018 01:36 PM Electronically Signed By:Pita Roper
--- NOTE | 2018-02-27 15:25 | SOAPPROG ---
SOAP Progress Note Assessment/Plan: Assessment: Per Dr. Swanson's note: 02/19/18 17:39 Schizoaffective D/o: remains manic, psychotic. Now aggressive. Received E- meds with good effect. Will continue. Will d/c buspirone and fluphenazine in favor of scheduled and prn Zyprexa. 02/22/18 16:34 Schizoaffective D/o: Remains manic, psychotic. Improving slowly. [facility]. 02/23/18 14:29 Schizoaffective D/o: Notable improvement today. [facility]. 02/24/18 15:17 Schizoaffective D/o: Continued improvement. Will discuss possible Prolixin dec. with him. [facility]. 02/25/18 16:15 Schizoaffective D/o: Up and down course. Calm now. Will increase PO Zyprexa and monitor. Will discuss again the necessity of an ALVARENGA with Dr. Rodriguez per pt request. 02/26/18 16:08 Schizoaffective D/o: Some improvement. Compliant with PO Zyprexa. Subjective: Pt seen, discussed with staff. Reports feeling "a lot calmer" today. She requests being taken off of AP so she can have the radio. This is discussed with the team and it is agreed that she remains too impulsive and volatile to do this yet. Pt is informed of this and told we will reassess in 24 hours. No aggressive bx's today. 02/27/18 15:22 1. Patient has been calm, polite and appropriate. Will allow her to use radio for 1 hour per day at staff's discretion as long as she demonstrates safe behavior and is appropriate. 2. Patient tolerating increase dose of Zyprexa, denies any SE's, no stiffness, rigidity, slowness or abnormal movements noted. 3. Patient attending some groups. 4. Patient on LTC and COM. Subjective: Met with patient, reviewed chart and d/w staff. Patient has been requesting radio privileges x 2 days. MD and staff decided it would be appropriate for trial of radio use. Patient will have access to radio for 1 hour each day at staff's discretion. Patient denied any SI/HI, no AH/VH, but still labile and impulsive. Objective: Vital Signs Temp Pulse Resp BP Pulse Ox 36.8 C 90 16 127/81 H 98 02/27/18 06:00 02/27/18 06:00 02/27/18 06:00 02/27/18 06:00 02/27/18 06:00 MSE: Affect: Calmer, more appropriate Mood: "OK" TP: More coherent and linear TC: Denies any SI/HI, no AH/VH Insight/Judgment: Improving - Time Spent With Patient Time Spent With Patient: 15" - Pending Discharge Pending Discharge Within 24 Hours: No Pending Discharge Within 48 Hours: No ICD10 Worksheet Patient Problems: Problems Problem Status Onset Psychosis Acute Schizophrenia, acute Acute Transgender Acute Acute psychosis Acute Bipolar affective disorder, currently manic, severe, with psychotic features Acute Schizophrenia Acute
[2018-02-27] MEDS: LORazepam 1 MG TAB PO PRN (15:53)
[2018-02-27] MEDS: OLANZapine DISINTEGR 5 MG TAB PO SCH (21:41)
[2018-02-27] MEDS: OLANZapine DISINTEGR 10 MG TAB PO SCH (21:41)
[2018-02-28] MEDS: LITHIUM CARBONATE ER 300 MG TAB PO SCH (08:10)
--- NOTE | 2018-02-28 14:24 | ASMTBHDC ---
Notes Note: Notes: Pt. was sitting at her desk writing when CC approached Pt. reports feeling "good". Pt. stated she slept "really well". Pt. denied SI, HI, AVH and paranoia. Pt. stopped responding to CC and focused on her writings. Staff report pt. being medication compliant, sleeping 7.5 hours and working better with staff. Date Signed: 02/28/2018 02:22 PM Electronically Signed By:Pita Roper
--- NOTE | 2018-02-28 14:47 | SOAPPROG ---
SOAP Progress Note Assessment/Plan: Assessment: Per Dr. Swanson's note: 02/19/18 17:39 Schizoaffective D/o: remains manic, psychotic. Now aggressive. Received E- meds with good effect. Will continue. Will d/c buspirone and fluphenazine in favor of scheduled and prn Zyprexa. 02/22/18 16:34 Schizoaffective D/o: Remains manic, psychotic. Improving slowly. [facility]. 02/23/18 14:29 Schizoaffective D/o: Notable improvement today. [facility]. 02/24/18 15:17 Schizoaffective D/o: Continued improvement. Will discuss possible Prolixin dec. with him. [facility]. 02/25/18 16:15 Schizoaffective D/o: Up and down course. Calm now. Will increase PO Zyprexa and monitor. Will discuss again the necessity of an ALVARENGA with Dr. Rodriguez per pt request. 02/26/18 16:08 Schizoaffective D/o: Some improvement. Compliant with PO Zyprexa. Subjective: Pt seen, discussed with staff. Reports feeling "a lot calmer" today. She requests being taken off of AP so she can have the radio. This is discussed with the team and it is agreed that she remains too impulsive and volatile to do this yet. Pt is informed of this and told we will reassess in 24 hours. No aggressive bx's today. 02/27/18 15:22 1. Patient has been calm, polite and appropriate. Will allow her to use radio for 1 hour per day at staff's discretion as long as she demonstrates safe behavior and is appropriate. 2. Patient tolerating increase dose of Zyprexa, denies any SE's, no stiffness, rigidity, slowness or abnormal movements noted. 3. Patient attending some groups. 4. Patient on LTC and COM. 02/28/18 14:43 1. Patient has been using radio in her room x 1 hour/day. She has been appropriate with this privilege and respectful toward staff. 2. Patient is restricted to 5 sheets of paper per day. She was throwing away composition books and excessive amounts of paper. 3. Patient has been compliant with meds. 4. On LTC and COM. Subjective: Met with patient, reviewed chart and d/w staff. Patient stays in room most of the day. She is drawing on paper and writing down thoughts. She told CC that her artwork is "very important to me." She used radio for 1 hour today without any problems. She was respectful and polite with staff, which is marked change to how she presented last weekend when she was arguing, screaming and yelling at staff. She denies any SI/HI. Objective: Vital Signs Temp Pulse Resp BP Pulse Ox 36.6 C 66 16 110/71 96 02/28/18 06:00 02/28/18 06:00 02/28/18 06:00 02/28/18 06:00 02/28/18 06:00 MSE: Affect: Euthymic, calmer Mood: "OK" TP: Linear, coherent TC: Denies any SI/HI, no AH/VH Insight/Judgment: Improving - Time Spent With Patient Time Spent With Patient: 15" - Pending Discharge Pending Discharge Within 24 Hours: No Pending Discharge Within 48 Hours: No ICD10 Worksheet Patient Problems: Problems Problem Status Onset Psychosis Acute Schizophrenia, acute Acute Transgender Acute Acute psychosis Acute Bipolar affective disorder, currently manic, severe, with psychotic features Acute Schizophrenia Acute
[2018-02-28] MEDS: OLANZapine DISINTEGR 10 MG TAB PO SCH (20:50)
[2018-02-28] MEDS: OLANZapine DISINTEGR 5 MG TAB PO SCH (20:50)
[2018-03-01] MEDS: LITHIUM CARBONATE ER 300 MG TAB PO SCH (08:17)
--- NOTE | 2018-03-01 14:36 | SOAPPROG ---
SOAP Progress Note Assessment/Plan: Assessment: Plan: 02/19/18 17:39 Schizoaffective D/o: remains manic, psychotic. Now aggressive. Received E- meds with good effect. Will continue. Will d/c buspirone and fluphenazine in favor of scheduled and prn Zyprexa. 02/22/18 16:34 Schizoaffective D/o: Remains manic, psychotic. Improving slowly. [facility]. 02/23/18 14:29 Schizoaffective D/o: Notable improvement today. [facility]. 02/24/18 15:17 Schizoaffective D/o: Continued improvement. Will discuss possible Prolixin dec. with him. [facility]. 02/25/18 16:15 Schizoaffective D/o: Up and down course. Calm now. Will increase PO Zyprexa and monitor. Will discuss again the necessity of an ALVARENGA with Dr. Rodriguez per pt request. 02/26/18 16:08 Schizoaffective D/o: Some improvement. Compliant with PO Zyprexa. 03/01/18 14:38 Schizoaffective D/o: Much improved over the weekend. [facility]. Will discuss again the need for ALVARENGA with Dr. Rodriguez. Subjective: Pt seen, discussed with staff. Reports feeling "good." States, "I'm almost back to myself. I know I need to get my life back together. I need to pay bills, clean my apartment, go shopping, contact my family." Behaviors remains stable and he is interacting appropriately with others. Hypergraphia continues, but he is not resistant to staff redirection. Objective: Vital Signs Temp Pulse Resp BP Pulse Ox 36.4 C 66 16 99/61 L 95 03/01/18 06:00 03/01/18 06:00 03/01/18 06:00 03/01/18 06:00 03/01/18 06:00 MSE: Calm, no excessive psychomotor activity. Affect is slightly elevated, but stable. Mood is "good." TP is linear. TC reveals no mention of grandiose , bizarre or paranoid thoughts. - Time Spent With Patient Time Spent With Patient: 25" ICD10 Worksheet Patient Problems: Problems Problem Status Onset Psychosis Acute Schizophrenia, acute Acute Transgender Acute Acute psychosis Acute Bipolar affective disorder, currently manic, severe, with psychotic features Acute Schizophrenia Acute
[2018-03-01] MEDS: LORazepam 1 MG TAB PO PRN (16:04)
[2018-03-01] MEDS: OLANZapine DISINTEGR 10 MG TAB PO SCH (21:23)
[2018-03-01] MEDS: OLANZapine DISINTEGR 5 MG TAB PO SCH (21:23)
[2018-03-02] MEDS: LITHIUM CARBONATE ER 300 MG TAB PO SCH (08:57)
--- NOTE | 2018-03-02 14:51 | SOAPPROG ---
SOEVELIO Progress Note Assessment/Plan: Assessment: Plan: 02/19/18 17:39 Schizoaffective D/o: remains manic, psychotic. Now aggressive. Received E- meds with good effect. Will continue. Will d/c buspirone and fluphenazine in favor of scheduled and prn Zyprexa. 02/22/18 16:34 Schizoaffective D/o: Remains manic, psychotic. Improving slowly. [facility]. 02/23/18 14:29 Schizoaffective D/o: Notable improvement today. [facility]. 02/24/18 15:17 Schizoaffective D/o: Continued improvement. Will discuss possible Prolixin dec. with him. [facility]. 02/25/18 16:15 Schizoaffective D/o: Up and down course. Calm now. Will increase PO Zyprexa and monitor. Will discuss again the necessity of an ALVARENGA with Dr. Rodriguez per pt request. 02/26/18 16:08 Schizoaffective D/o: Some improvement. Compliant with PO Zyprexa. 03/01/18 14:38 Schizoaffective D/o: Much improved over the weekend. [facility]. Will discuss again the need for ALVARENGA with Dr. Rodriguez. 03/02/18 14:49 Schizoaffective D/o: Appears to be approaching baseline. Will [facility], await communication with Dr. Blood Subjective: Pt seen, discussed with staff. Reports feeling "good." Behaviors remain stable. No aggression. Managing increased privileges well. Sleep is stable, > 8 hours/night. Compliant with PO Zyprexa. Objective: Vital Signs Temp Pulse Resp BP Pulse Ox 36.4 C 75 16 108/68 97 03/02/18 06:00 03/02/18 06:00 03/02/18 06:00 03/02/18 06:00 03/02/18 06:00 - Time Spent With Patient Time Spent With Patient: 25" ICD10 Worksheet Patient Problems: Problems Problem Status Onset Psychosis Acute Schizophrenia, acute Acute Transgender Acute Acute psychosis Acute Bipolar affective disorder, currently manic, severe, with psychotic features Acute Schizophrenia Acute
[2018-03-02] MEDS: LORazepam 1 MG TAB PO PRN (20:36)
[2018-03-02] MEDS: OLANZapine DISINTEGR 10 MG TAB PO SCH (21:20)
[2018-03-02] MEDS: OLANZapine DISINTEGR 5 MG TAB PO SCH (21:20)
[2018-03-03] MEDS: LITHIUM CARBONATE ER 300 MG TAB PO SCH (08:48)
--- NOTE | 2018-03-03 15:01 | SOAPPROG ---
SOEVELIO Progress Note Assessment/Plan: Assessment: Plan: 02/19/18 17:39 Schizoaffective D/o: remains manic, psychotic. Now aggressive. Received E- meds with good effect. Will continue. Will d/c buspirone and fluphenazine in favor of scheduled and prn Zyprexa. 02/22/18 16:34 Schizoaffective D/o: Remains manic, psychotic. Improving slowly. [facility]. 02/23/18 14:29 Schizoaffective D/o: Notable improvement today. [facility]. 02/24/18 15:17 Schizoaffective D/o: Continued improvement. Will discuss possible Prolixin dec. with him. [facility]. 02/25/18 16:15 Schizoaffective D/o: Up and down course. Calm now. Will increase PO Zyprexa and monitor. Will discuss again the necessity of an ALVARENGA with Dr. Rodriguez per pt request. 02/26/18 16:08 Schizoaffective D/o: Some improvement. Compliant with PO Zyprexa. 03/01/18 14:38 Schizoaffective D/o: Much improved over the weekend. [facility]. Will discuss again the need for ALVARENGA with Dr. Rodriguez. 03/02/18 14:49 Schizoaffective D/o: Appears to be approaching baseline. Will [facility], await communication with Dr. Blood 03/03/18 15:00 Schizoaffective D/o: Doing well. With Prolixin dec on board, should be OK to go home. D/c as soon as tomorrow. Subjective: Pt seen, discussed with staff. Remains in good behavioral control. Spends most of his time in his room. Compliant with meds. Agrees to take Prolixin dec today. Focused on d/c. Objective: Vital Signs Temp Pulse Resp BP Pulse Ox 36.5 C 79 16 99/58 L 96 03/03/18 06:00 03/03/18 06:00 03/03/18 06:00 03/03/18 06:00 03/03/18 06:00 MSE: Calm, coop, appropriately interactive. Affect is stable, generally euthymic. Mood is "good." TP linear. TC reveals no delusions or hallucinations. - Time Spent With Patient Time Spent With Patient: 25" ICD10 Worksheet Patient Problems: Problems Problem Status Onset Psychosis Acute Schizophrenia, acute Acute Transgender Acute Acute psychosis Acute Bipolar affective disorder, currently manic, severe, with psychotic features Acute Schizophrenia Acute
[2018-03-03] MEDS: FLUPHENAZINE DECANOATE IM ONE ×2 (15:05→15:40)
[2018-03-03] MEDS: FLUPHENAZINE DECANOATE 25 MG/ML 5 ML VIAL IM ONE ×2 (15:29→15:43)
[2018-03-03] MEDS: LORazepam 1 MG TAB PO PRN (19:07)
[2018-03-03] MEDS: OLANZapine DISINTEGR 5 MG TAB PO SCH (21:30)
[2018-03-03] MEDS: OLANZapine DISINTEGR 10 MG TAB PO SCH (21:30)
[2018-03-04] MEDS: LITHIUM CARBONATE ER 300 MG TAB PO SCH (08:50)
[2018-03-04] MEDS: LORazepam 1 MG TAB PO PRN ×2 (08:51→17:02)
--- NOTE | 2018-03-04 16:10 | SOAPPROG ---
SOAP Progress Note Assessment/Plan: Assessment: Plan: 02/19/18 17:39 Schizoaffective D/o: remains manic, psychotic. Now aggressive. Received E- meds with good effect. Will continue. Will d/c buspirone and fluphenazine in favor of scheduled and prn Zyprexa. 02/22/18 16:34 Schizoaffective D/o: Remains manic, psychotic. Improving slowly. [facility]. 02/23/18 14:29 Schizoaffective D/o: Notable improvement today. [facility]. 02/24/18 15:17 Schizoaffective D/o: Continued improvement. Will discuss possible Prolixin dec. with him. [facility]. 02/25/18 16:15 Schizoaffective D/o: Up and down course. Calm now. Will increase PO Zyprexa and monitor. Will discuss again the necessity of an ALVARENGA with Dr. Rodriguez per pt request. 02/26/18 16:08 Schizoaffective D/o: Some improvement. Compliant with PO Zyprexa. 03/01/18 14:38 Schizoaffective D/o: Much improved over the weekend. [facility]. Will discuss again the need for ALVARENGA with Dr. Rodriguez. 03/02/18 14:49 Schizoaffective D/o: Appears to be approaching baseline. Will [facility], await communication with Dr. Oquendo. 03/03/18 15:00 Schizoaffective D/o: Doing well. With Prolixin dec on board, should be OK to go home. D/c as soon as tomorrow. 03/04/18 16:08 Schizoaffective D/o: Continued improvement. CCM. Likely d/c tomorrow directly to outpt appt. Subjective: Pt seen, discussed with staff. Pleasant and interactive. Accepts plan for d/c tomorrow. [facility] liaison getting appt's set. No behavioral problems. Hypergraphia is most prominent sx at this point. Objective: Vital Signs Temp Pulse Resp BP Pulse Ox 36.6 C 53 L 15 107/63 98 03/04/18 06:00 03/04/18 06:00 03/04/18 06:00 03/04/18 06:00 03/04/18 06:00 MSE: Adequately groomed, coop. Affect is euthymic, stable, approp. Mood is "good." TP linear. TC reveals no obvious psychosis. - Time Spent With Patient Time Spent With Patient: 15" ICD10 Worksheet Patient Problems: Problems Problem Status Onset Psychosis Acute Schizophrenia, acute Acute Transgender Acute Acute psychosis Acute Bipolar affective disorder, currently manic, severe, with psychotic features Acute Schizophrenia Acute
[2018-03-05 06:50] VITALS: BP 100/58
[2018-03-05] MEDS: LITHIUM CARBONATE ER 300 MG TAB PO SCH (08:38)
[2018-03-05] MEDS: OLANZapine DISINTEGR 5 MG TAB PO SCH (10:58)
[2018-03-05] MEDS: OLANZapine DISINTEGR 10 MG TAB PO SCH (10:58)
--- NOTE | 2018-03-05 17:16 | BDS ---
[f rep st] BEHAVIORAL HEALTH DISCHARGE SUMMARY REASON FOR ADMISSION: Patient is a 32-year-old male with a history of schizoaffective diso rder. He is well known to us from previous admissions and presented in an extremely decompensated st ate. He is on a long-term certification with court-ordered medications and was brought in after fail ing to comply with his outpatient medication regimen. A full description of the events preceding adm ission can be found in his admission history dated 02/18/2018. ADMITTING DIAGNOSES: Schizoaffective disorder, bipolar type, chronic with acute exacerbation; chroni c illness; recurrent illness; medication noncompliance; history of cannabis use disorder, severe, cur rent status unknown; marginal social supports. ADMITTING PHYSICAL EXAMINATION: Performed by Dr. Chuy Hendrickson revealed some weight loss, otherwis e unremarkable. ADMISSION LABORATORY: CBC showed a white count up at 10.97, otherwise normal. Serum chemistries wer e normal. TSH was normal at 1.68. Urine drug screen was negative for all substances. [place] level 0.9. HOSPITAL COURSE: Patient was admitted to the behavior health services inpatient unit on a transfer o f his extended long-term certification. He was very agitated, pressured and hyperactive. He was alhaji cing and disrobing and yelling and was irritable and profane toward the staff. He, at one point, for manolo his way into the nurse's station and required seclusion and emergency medications. He calmed aft er this and then showed no other aggressive behaviors. We restarted his outpatient medications, incl uding his lithium and Zyprexa. He stated that he did not want to take BuSpar and/or Prolixin as he b elieved these were unhelpful and believed that the Prolixin made him suicidal. I reviewed the case a t length with Dr. Rodriguez, who is his outpatient psychiatrist. She was adamant that the patient req uired a Prolixin Decanoate, and if he did not get this, he could not remain stable in the community. They had been tapering it, and she believed this precipitated his decompensation. The patient was a damantly against this, stating, again, that it caused him to feel suicidal. This is something also t hat Dr. Rodriguez noted. I focused on the Zyprexa, increasing to 15 mg at h.s., and he tolerated this well with no side effects. The patient's hospital course was fairly uncomplicated. He had some dramatic and intrusive behaviors , though displayed no further aggression after the 1 episode. He slept well, was eating adequately, and was compliant with medications. I approached him with the option of taking the Prolixin again on 03/03/2018 as he appeared to be in a more reasonable state. I stated to him that [facility] was insistent that he needed this and that he would not be accepted back into the [facility] program i f he did not take it. He immediately agreed to take it, and we administered 25 mg of Prolixin Decano ate that day with no problems. We then secured outpatient appointments, and the patient was discharg ed directly to his appointment with the rn case management. CONDITION ON DISCHARGE: Stable. His affect was euthymic, stable and appropriate. He was displaying no further evidence of tata, and his behaviors were in good control. DISCHARGE MEDICATIONS: Zyprexa 15 mg p.o. q.h.s., Prolixin Decanoate 25 mg (interval to be determine d by outpatient team, last given on 03/03/2018), and lithium carbonate ER 1500 mg daily. DISCHARGE DIAGNOSES: Schizoaffective disorder, bipolar type, chronic with acute exacerbation; chroni c illness; recurrent illness; medication noncompliance; poor insight; legal problems; marginal suppor ts. DISPOSITION: Patient left the hospital with the rn case management to go directly to the [facility] for appointment. The patient was given written instructions of his followup appointments at the time of discharge. The patient was continued on his extended long-term certification throughout his stay, and this was t ransferred back to [facility] at the time of his discharge. The patient's attitude varied during his stay, but was positive at the time of his discharge. The pat ient was full code throughout his stay. There were no pending labs or studies at the time of discharge. /[id number]/MODL
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
== END 2018-03-05 10:55 | disposition home or self-care (01) | DRG 885 ==
LOC: BBEH 02-18 00:25
PROVIDERS: ADMIT Psychiatry & Neurology Psychiatry; ATTEND Psychiatry & Neurology Psychiatry
DX: F25.0 Schizoaffective disorder, bipolar type (principal); T43.506A Underdosing of unspecified antipsychotics and neuroleptics, initial encounter; F17.200 Nicotine dependence, unspecified, uncomplicated; R63.4 Abnormal weight loss
CPT/HCPCS: 80305; G0480; J2060; J2680

== ENCOUNTER 2018-06-22 15:59 | Inpatient (IN) | payer OTHER, MEDICAID ==
--- NOTE | 2018-06-22 16:03 | EDPHY ---
HPI/HX/ROS/PE/MDM Narrative: CHIEF COMPLAINT: M1 hold HPI: The patient is a 32-year-old male with a history of schizoaffective disorder and frequent ED visits and psychiatric hospitalizations. The patient arrives via PD on an M1 hold placed by [facility]. Apparently the patient has court-ordered psychiatric medications that he has been noncompliant with. He has been acting increasingly aggressive and hyperactive. No known history of trauma. REVIEW OF SYSTEMS: Difficult to obtain secondary to patient noncooperation. Essentially unremarkable.. PMH: Includes schizoaffective disorder, history of psychiatric hospitalizations. SOCIAL HISTORY: Homeless. PHYSICAL EXAM: General:Patient is alert, in no acute distress. He is disheveled and acting in an odd manner. ENT:Eyes are normal to inspection. ENT inspection normal. Neck: Normal inspection. Full range of motion. Respiratory:No respiratory distress. Breath sounds normal bilaterally. Cardiovascular: Regular rate and rhythm. Strong peripheral pulses. Normal cap refill. Abdomen:The abdomen is nontender to palpation. There are no peritoneal signs. There are normal bowel sounds. Back: Normal to inspection. No tenderness to palpation. Skin: Normal color. No rash. Warm and dry. Extremities: Normal appearance. Full range of motion. Neuro: No focal deficits. Psychiatric: Disorganized, refuses to comply with interview. MDM: 1800: Patient has been accepted for transfer to [address] [place] [address] psych unit. - Data Points Laboratory Results: Laboratory Results 06/22/18 16:05 06/22/18 16:05 06/22/18 06/22/18 06/22/18 16:46 16:05 16:05 WBC 5.79 10^3/uL 10^3/uL (3.80-9.50) RBC 4.53 10^6/uL 10^6/uL (4.40-6.38) Hgb 13.8 g/dL g/dL (13.7-17.5) Hct 41.3 % % (40.0-51.0) MCV 91.2 fL fL (81.5-99.8) MCH 30.5 pg pg (27.9-34.1) MCHC 33.4 g/dL g/dL (32.4-36.7) RDW 11.9 % % (11.5-15.2) Plt Count 344 10^3/uL 10^3/uL (150-400) MPV 9.3 fL fL (8.7-11.7) Neut % (Auto) 52.9 % % (39.3-74.2) Lymph % (Auto) 32.5 % % (15.0-45.0) [place] % (Auto) 8.1 % % (4.5-13.0) Eos % (Auto) 6.0 % % (0.6-7.6) Baso % (Auto) 0.3 % % (0.3-1.7) Nucleat RBC Rel Count 0.0 % % (0.0-0.2) Absolute Neuts (auto) 3.06 10^3/uL 10^3/uL (1.70-6.50) Absolute Lymphs (auto) 1.88 10^3/uL 10^3/uL (1.00-3.00) Absolute Monos (auto) 0.47 10^3/uL 10^3/uL (0.30-0.80) Absolute Eos (auto) 0.35 10^3/uL 10^3/uL (0.03-0.40) Absolute Basos (auto) 0.02 10^3/uL 10^3/uL (0.02-0.10) Absolute Nucleated RBC 0.00 10^3/uL 10^3/uL (0-0.01) Immature Gran % 0.2 % % (0.0-1.1) Immature Gran # 0.01 10^3/uL 10^3/uL (0.00-0.10) Sodium 139 mEq/L mEq/L (135-145) Potassium 4.5 mEq/L mEq/L (3.3-5.0) Chloride 106 mEq/L mEq/L (97-110) Carbon Dioxide 26 mEq/l mEq/l (22-31) Anion Gap 7 mEq/L mEq/L (6-14) BUN 14 mg/dL mg/dL (7-23) Creatinine 0.8 mg/dL mg/dL (0.7-1.3) Estimated GFR > 60 Glucose 71 mg/dL mg/dL (70-100) Calcium 9.4 mg/dL mg/dL (8.5-10.4) Urine Opiates Screen NEGATIVE (NEGATIVE) Urine Barbiturates NEGATIVE (NEGATIVE) Ur Phencyclidine Scrn NEGATIVE (NEGATIVE) Ur Amphetamine Screen NEGATIVE (NEGATIVE) U Benzodiazepines Scrn NEGATIVE (NEGATIVE) Urine Cocaine Screen NEGATIVE (NEGATIVE) U Marijuana (THC) Screen NEGATIVE (NEGATIVE) Ethyl Alcohol < 10 mg/dL mg/dL (0-10) Medications Given: Discontinued Medications Olanzapine (Zyprexa Zydis) 10 mg PO EDNOW ONE Stop: 06/22/18 16:16 Last Admin: 06/22/18 16:25 Dose: 10 mg General Time Seen by Provider: 06/22/18 16:01 Initial Vital Signs: Initial Vital Signs Temperature (C) 36.7 C 06/22/18 16:06 Heart Rate 77 06/22/18 16:06 Respiratory Rate 18 06/22/18 16:06 Blood Pressure 123/82 H 06/22/18 16:06 O2 Sat (%) 98 06/22/18 16:06 O2 Delivery Mode Room Air Allergies/Adverse Reactions: No Known Allergies Allergy (Verified 05/03/17 13:25) Home Medications: Medication Instructions Recorded Propranolol HCl [Inderal 20mg (*)] 20 mg PO BID PRN 02/18/18 [place] Carbonate ER [Lithobid 300 1,500 mg PO DAILY #150 tab 03/05/18 mg (*)] OLANZapine [Zyprexa] 15 mg PO HS #30 tablet 03/05/18 Departure - Departure Disposition: [facility] Clinical Impression: Altered mental status, Bipolar affective disorder, currently manic, severe, with psychotic features Condition: Fair
[2018-06-22] MEDS ORDERED: OLANZapine DISINTEGR 5 MG TAB PO ONE (16:15)
[2018-06-22] MEDS ORDERED: OLANZapine 5 MG TAB ONE (16:16)
[2018-06-22 16:20] LABS: PLATELET COUNT 344 10^3/uL (150-400)
[2018-06-22] MEDS ORDERED: LORazepam 1 MG TAB PO ONE (18:10)
[2018-06-22] MEDS ORDERED: OLANZapine DISINTEGR 10 MG TAB PO PRN (21:31)
[2018-06-22] MEDS ORDERED: LORazepam 0.5 MG TAB PO PRN (21:31)
[2018-06-22] MEDS ORDERED: MAGNESIUM HYDROXIDE 30 ML UDCUP PO PRN (21:31)
[2018-06-22] MEDS ORDERED: NICOTINE POLACRILEX 2 MG GUM B PRN (21:31)
[2018-06-22] MEDS ORDERED: ACETAMINOPHEN 325 MG TAB PO PRN (21:31)
[2018-06-22] MEDS ORDERED: MAG HYDROX/AL HYDROX/SIMETH 30 ML UDCUP PO PRN (21:31)
[2018-06-23] MEDS ORDERED: LITHIUM CARBONATE ER 300 MG TAB PO SCH ×2 (09:00→21:00)
[2018-06-23] MEDS ORDERED: LITHIUM CARBONATE ER 300 MG TAB PO ONE (10:23)
[2018-06-23] MEDS ORDERED: FLUPHENAZINE DECANOATE 25 MG/ML 5 ML VIAL IM SCH (10:30)
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
--- NOTE | 2018-06-23 12:45 | ASMTCMCOM ---
CM Note CM Note Notes: Pt and CC completed MTP, signed and placed in chart. Pt. signed MTP "Carly Alberto". Pt. refused to speak to CC further regarding any legal issues or substance use. Staff report pt. sleeping5.5 hours and being medication compliant. Date Signed: 06/23/2018 12:44 PM Electronically Signed By:Pita Roper
--- NOTE | 2018-06-23 13:06 | BAPA ---
DATE OF SERVICE: 06/23/2018 CHIEF COMPLAINT: "I am here because I am homeless, living on the street and I was hungry and got arrested for stealing pretzels and beer. I was in [facility] for 1 day and then they sent me to the emergency room to come here for further evaluation." HISTORY OF PRESENT ILLNESS: From the ED note dated 06/22/2018. The patient has a history of schizoaffective disorder and frequent ED visits and psychiatric hospitalizations. The patient arrived to the ED via the police department on an M1 hold placed by [facility]. The patient has been nonadherent to court-ordered medications. [facility] reports that patient has been increasingly aggressive and hyperactive. From the [facility] assessment dated 06/22/2018, the patient is a transgender female. The patient was arrested on 06/21/2018 after stealing from [employer] and being physically and verbally erratic. Patient was released from [facility] on a [place] and has a court date for 06/28. The patient's outpatient psychiatrist reports the patient is not safe in the community unmedicated. The patient was released from [facility] on 06/17, has been aggressive; threw produce in [employer] and was taken into custody in a [employer] restaurant shortly after. The patient has been non adherent to court ordered medications. The patient has a history of exhibiting behaviors including masturbating and exposing herself in [facility]. The patient tends to talk to "Goddesses." Does not sleep well, can be paranoid and believes people are imposters when patient is not taking medications. The patient became increasing agitated during the interview with her outpatient provider on 2017. The patient described the reason she took the pretzels at the [employer] because she did not have any money. The patient's outpatient psychiatrist placed the patient on M1 hold. The M1 hold was dated 06/22/2018, at 1451. M1 hold was placed as patient is gravely disabled due to a mental illness. M1 hold states, patient has not been complying with court ordered medications. Has a history of medication noncompliance. The patient has been exhibiting high-risk behavior such as stealing and has been physically and verbally erratic. Th patient is talking about Goddesses and becomes angry when challenged. Patient is currently on a long-term certification and treatment by involuntary medication. The medications include Prolixin, clozaril, Trilafon, Risperdal, Geodon, Seroquel, Zyprexa, Abilify, Fanapt, Saphris, lithium, Depakote, Tegretol, Lamictal, lorazepam, clonazepam, Cogentin, Artane, Benadryl, and Inderal. The long-term certification expires August 09, 2018. The order was placed on January 14, 2018. This GRINDING WHEEL DRESSER consulted with the patient's outpatient provider at [facility]. Psychiatrist recommended continuing lithium ER 1500 mg p.o. daily and starting Prolixin Decanoate 25 mg p.o. q.3 weeks. This GRINDING WHEEL DRESSER discussed this with the patient. The patient agreed to lithium ER 1500 mg p.o. q.a.m. The patient stated that she does not take Prolixin because Prolixin causes "my body to be deformed." The patient stated that she does not take any antipsychotic medications because antipsychotic medications cause her to become deformed, depressed and suicidal. The patient did, however, report that she would be willing to have the Prolixin Decanoate 25 mg IM administered today. PAST PSYCHIATRIC HISTORY: This GRINDING WHEEL DRESSER asked the patient about past psychiatric history, the patient states "you already know my history, I have already told to all of this." The patient refuses to answer questions regarding past psychiatric history. From the [facility] evaluation dated 02/18/2018, from patient's previous hospitalization, the patient has a history of schizoaffective disorder , bipolar type. From the [facility] crisis assessment dated 2017, the patient was hospitalized at [facility] from 02/18/2018, to 03/05/2018. The patient was placed on court ordered medications from 2017 to 08/09/2018. The patient was placed on extended long-term certification from 02/07/2018 to 08/09/2018. The patient has a history of previous hospitalizations including from 08/27/2017 to 10/02/2017, and also on 2016. The patient was also placed on court ordered medications on 08/09/2017 to 02/07/2018, and a long-term certification from 08/09/2017 to 02/07/2018. ALLERGIES: No known allergies. CURRENT MEDICATIONS: Zyprexa Zydis 10 mg p.o. q.6 hours p.r.n., Ativan 0.5 to 1 mg p.o. q.6 hours p.r.n., Lithobid 1500 mg p.o. daily, first dose now, fluphenazine 25 mg IM q. 21 days, first dose today. PAST MEDICAL HISTORY: The patient refuses to answer past medical history, and states to this GRINDING WHEEL DRESSER that this information has already been provided. From the [facility] evaluation dated 02/18/2018, patient reported no history of major illnesses or major hospitalizations. SOCIAL HISTORY: The patient refuses to answer social history questions and again reports that this information has already been provided. From the [facility] evaluation dated 02/18/2018 with regard to developmental history, patient reported she had a "great childhood" but when asked by the [facility] nuclear weapons specialist if any experience of abuse, the patient stated "I do not want to talk about it." The patient is not , has no children. The patient lives in an apartment in [place]. The patient is a transgender female. The patient is unemployed. From the [facility] evaluation dated 06/22/2018, the patient's mother speaks to the patient multiple times per day. The patient has 2 brothers , whom patient does not get along with well at times. The patient reported that her parents are . Patient's mother lives in [place] and father lives in [facility]. The patient reported having 3 older siblings, 2 older brothers and an older sister. Older brother is in the [facility] and lives in [place] and the other older brother is in the [facility] and lives in [place]. The patient's older sister lives in [place] and is a musician. The patient reported she completed a bachelor's degree in music and sings and plays 4 instruments, piano, flute, fiddle and banjo. The patient reports she has lots of friends. SUBSTANCE USE HISTORY: The patient refuses to answer questions regarding substance use history. From the [facility] evaluation dated 02/18/2018, the patient denied any use of drugs. From the [facility] evaluation dated 06/22, past substance use is not suspected. The patient is a poor historian and provided little to no information to this provider or [facility] regarding substance use history. FAMILY PSYCHIATRIC HISTORY: The patient reports no history of family mental illness. No history of family suicide and no family history of substance use. ADMISSION LABS: CBC from 06/22/2018, within normal limits. BMP from 06/22/2018 , within normal limits. Hemoglobin A1c from 06/22/2018, within normal limits at 5.3. Lipid panel from 06/22/2018, within normal limits except cholesterol was low at 108, LDL cholesterol calculated was low at 61, non-HDL cholesterol was low at 75, HDL cholesterol was low at 33. TSH from 02/17/2018, was 1.680. Toxicology screen from 06/22/2018, was negative for all substances screened and negative for ethyl alcohol. MENTAL STATUS EXAM: The patient is an undernourished transgender female looking stated chronological age. Attire is inappropriate. Dress is bizarre and disheveled. Grooming status is inappropriate and disheveled. Ambulation is independent. Gait is normal and coordinated. Posture is normal and relaxed. Eye contact is inappropriate and staring. Motor activity is appropriate with purposeful, organized, coordinated movements with no involuntary movements noted. Attitude is uncooperative and defensive and guarded. The patient appears disinterested and does not relate well to this interviewer. Language production is spontaneous, rate is pressured. Latency of response is shortened with irritable tone and high volume, articulation is clear. The patient reports mood as "okay" with expanses and incongruent affect. The patient's thought process is nonlinear and illogical with loose associations, tangential thought. The patient does not report suicidal or homicidal thoughts, ideas, or plans. The patient denies auditory, visual hallucinations. The patient denies delusions. The patient does not appear to be attending to internal stimuli. Patient is oriented to person, place, and time. The patient's attention and concentration are poor. The patient's insight and judgment are poor. There is no evidence of gross cognitive dysfunction at any point during the interview and no evidence of apparent dysfunction in recent or remote memory noted. DIAGNOSES: Schizoaffective disorder, bipolar type. FORMULATION: The patient is a 32-year-old transgender male to female, unemployed, homeless, living in [place], [place] who presents to the hospital involuntarily due to being gravely disabled due to a mental illness and is currently on an M1 hold. Patient requires continued inpatient care because of current acute psychosis and recent crisis that led to this hospitalization. The patient presents with problems of nonadherence to medical treatment. Patient's life has been affected by these problems including decompensation, increased psychosis, aggressive behavior leading to high-risk behaviors in the community. The exacerbation of symptoms was preceded by the patient's nonadherence to medications. The patient has a past psychiatric history of schizoaffective disorder, bipolar type, and when patient takes medications as prescribed, response to treatment is fair. The patient is at a high safety risk due to current psychosis, recent crisis that led to this hospitalization, and history of medication nonadherence. Protective factors while hospitalized include ongoing safety checks, active involvement in treatment, and support from our treatment team. The patient could benefit from inpatient hospitalization for safety, crisis stabilization, and medication evaluation. The patient could benefit from hospitalization for starting long- acting injectable of an antipsychotic for improved adherence to medication treatment. PLAN: (1) Psychotropic medications after consulting with the patient's outpatient psychiatrist at [facility]. Plan is to begin lithium ER 1500 mg p.o. daily and Prolixin Decanoate 25 mg IM q.3 weeks, first dose today. No other medication changes at this time as more time is needed to determine ongoing tolerability and efficacy. Plan is to continue to observe patient for response and side effects from medications, and ongoing monitoring and evaluation. (2) Review with patient informed consent and recommendations for psychotropic medication treatment listed below (3) Labs: no additional labs at this time (4) Therapy: continue milieu and group therapy (5) Further investigation including gathering information from patients relatives and review of past case records to inform treatment plan. (6) Safety/Wellness plan and follow-up outpatient appointments to be established prior to discharge. Next steps are for patient to meet with rn coronary care unit to plan a safe discharge plan and establish outpatient services for ongoing treatment. (7) Confer with inpatient treatment team regarding treatment plan. (8) Legal status: LTC / COM (9) Consider discharge next week if patient is in stable condition, safe, and has a safe discharge plan. (10) Substance abuse interventions: ESTIMATED LENGTH OF STAY: 3-5 days PSYCHOTROPIC MEDICATION TREATMENT INFORMED CONSENT and RECOMMENDATIONS: Review nature of condition, diagnosis, and prognosis. Review nature and purpose of psychotropic medication treatment. Review type of psychotropic medications being ordered. Review risk and benefits of psychotropic medication treatment. Review probable length of time will need to take medications. Review risk and benefits of not undergoing psychotropic medication treatment. Review alternative treatments to psychotropic medications. Review psychotropic medications contraindications, drug-drug interactions, side effects, and importance of reporting any side effects to a psychiatric provider or nurse during inpatient hospitalization, and upon discharge to patients psychiatric outpatient provider, primary care provider, or other health healthcare prof. Review importance of asking a nurse, psychiatric provider, or primary care provider any questions or problems concerning the psychotropic medications. Verify patient understands the information that has been provided, and understands, accepts, and agrees to psychotropic medications. Review patients safety plan and importance of patient to communicate to staff while hospitalized if patient is ever a danger to self/others, or unable to care for self, and upon discharge, the importance for patient to contact [facility] or [facility], or go to the nearest emergency room, if patient is ever a danger to self/others, or unable to care for self. Recommend that upon discharge patient establish medication management treatment with a psychiatric provider, establishes routine therapy appointments, and follow-up with primary care provider. Verify patient understands and agrees to these recommendations. /[id number]/MODL MTDD
--- NOTE | 2018-06-23 13:21 | BCON ---
INTERNAL MEDICINE CONSULTATION DATE OF CONSULTATION: 06/23/2018 REFERRING PHYSICIAN: Yarelis Winslow MD REASON FOR REFERRAL: Medical clearance for inpatient behavioral health stay. HISTORY OF PRESENT ILLNESS: This patient came to the emergency department yesterday via police on an M1 hold, which had been placed by [facility]. He has court ordered psychiatric medications and had been noncompliant. He had been increasingly aggressive and hyperactive. Currently, he is without any acute complaints. PAST MEDICAL HISTORY: 1. Psychiatric diagnoses including schizoaffective disorder, bipolar type, schizophrenia, bipolar disorder, acute psychosis. 2. Transgender, male to female. MEDICATIONS: Medications he was prescribed but not compliant with: 1. [place] 1350 mg p.o. q.h.s. 2. Propranolol 10 mg p.o. b.i.d. 3. Per the emergency department note, olanzapine. ALLERGIES: No known drug allergies. SOCIAL HISTORY: The emergency department note lists him as homeless, however, he reports that he lives alone in a home. He is a tobacco smoker. FAMILY HISTORY: Noncontributory. REVIEW OF SYSTEMS: Limited, due to reduced cooperation. He denies pain, cough or dyspnea. He denies fever or chills. Otherwise to the extent that it could be conducted, a 10-point review of systems is negative. PHYSICAL EXAM: VITAL SIGNS: Blood pressure is 110/66, heart rate is 91, respiratory rate is 13 oxygen saturation is 98% on room air, temperature is 36.3 degrees centigrade, his weight is 68 kg for a body mass index of 19.8. GENERAL: This is a thin man, appears his chronologic age with an unusual affect , cooperative, and in no acute distress. HEENT: Extraocular movements are intact. Mucous membranes are moist. NECK: Supple. CARDIOVASCULAR: Exam could not be conducted. PULMONARY: Exam could not be conducted, however, he is not tachypneic and shows no retractions. ABDOMEN: Grossly benign. NEUROLOGIC: He is ambulating up and down the winkler, does not stop, but is willing to interact with the examiner to a limited extent while walking. Gait is normal. There is no apparent weakness. Cranial nerves 2-12 are grossly intact. LABORATORY STUDIES: CBC was normal. Metabolic profile revealed normal renal function and electrolytes. Hemoglobin A1c was normal at 5.3. Lipid panel revealed a low cholesterol at 108, low LDL at 61, low HDL at 33. Toxicology screen in the serum was negative for ethyl alcohol and the urine was negative for substances of abuse. ASSESSMENT/RECOMMENDATIONS: 1. Mental health issues pending further evaluation and management per Psychiatry and the mental health team. 2. Tobacco dependence syndrome. He reports he has quit in the past, but he is currently smoking and he reports no interest in smoking cessation. I see no medical contraindications to this patient's continued stay on the inpatient behavioral health unit or to any psychiatric medications or procedures. Thank you very much for including me in the care of this patient and please do not hesitate to contact me or the hospitalist service should there be need for further medical evaluation. /[id number]/MODL MTDD
[2018-06-23] MEDS: BENZTROPINE MESYLATE 1 MG TAB PO SCH (21:02)
[2018-06-24] MEDS: BENZTROPINE MESYLATE 1 MG TAB PO SCH ×2 (09:05→20:10)
[2018-06-24] MEDS: LITHIUM CARBONATE ER 300 MG TAB PO SCH (09:05)
--- NOTE | 2018-06-24 10:29 | SOAPPROG ---
SOAP Progress Note Assessment/Plan: Assessment: Schizoaffective disorder, bipolar type. Slight improvement noted. (see subjective/objective note). Patient is not safe to discharge at this time as patient continues to exhibit signs of psychosis, and express psychosis symptoms. Patient requires continued inpatient care because of current psychosis, and requires inpatient level of care to stabilize in order to no longer be gravely disabled due to mental illness. Patient could benefit from continued inpatient hospitalization for crisis stabilization, safety, and medication evaluation. Patient could benefit from therapeutic level of antipsychotic and lithium prior to discharge; lithium level Thursday prior to discharge. Plan: (1) Psychotropic medications: After reviewing options, risks, and benefits patient agrees to continue current medications. No medication changes at this time as more time is needed to determine ongoing tolerability and efficacy. Plan is to continue to observe patient for response and side effects from medications, and ongoing monitoring and evaluation. (2) Review with patient informed consent and recommendations for psychotropic medication treatment listed below (3) Labs: no additional labs at this time (4) Therapy: continue milieu and group therapy (5) Further investigation including gathering information from patients relatives and review of past case records to inform treatment plan. (6) Safety/Wellness plan and follow-up outpatient appointments to be established prior to discharge. Next steps are for patient to meet with personal care aide to plan a safe discharge plan and establish outpatient services for ongoing treatment. (7) Confer with inpatient treatment team regarding treatment plan. (8) Legal status: LT / [facility] (9) Consider discharge on Thursday if patient is in stable condition, safe, and has a safe discharge plan. PSYCHOTROPIC MEDICATION TREATMENT INFORMED CONSENT and RECOMMENDATIONS: Review nature of condition, diagnosis, and prognosis. Review nature and purpose of psychotropic medication treatment. Review type of psychotropic medications being ordered. Review risk and benefits of psychotropic medication treatment. Review probable length of time patient will need to take medications. Review risk and benefits of not undergoing psychotropic medication treatment. Review alternative treatments to psychotropic medications. Review psychotropic medications contraindications, drug-drug interactions, side effects, and importance of reporting any side effects to a psychiatric provider or nurse during inpatient hospitalization, and upon discharge to patients psychiatric outpatient provider, primary care provider, or other health care navigator. Review importance of asking a nurse, psychiatric provider, or primary care provider any questions or problems concerning the psychotropic medications. Verify patient understands the information that has been provided, and understands, accepts, and agrees to psychotropic medications. Review patients safety plan and importance of patient to report to staff while hospitalized if patient is ever a danger to self/others, or unable to care for self, and upon discharge, the importance for patient to contact [facility] or [facility], or go to the nearest emergency room, if patient is ever a danger to self/others, or unable to care for self. Recommend that upon discharge patient establish medication management treatment with a psychiatric provider, establishes routine therapy appointments, and follow-up with primary care provider. Verify patient understands and agrees to these recommendations. 06/24/18 10:29 Subjective: Following up with patient for evaluation of psychosis, tata, and safety. Patient reports, "Feeling good, I agreed to the shot yesterday. Just anxious being here. When can I discharge?" Patient expresses the following psychiatric symptoms moderate anxiety. Patient reports taking medications as prescribed, and describes response to medications as okay. Patient does not report undesirable side effects from the medications, and agrees to continue current medications. Patient reports appetite as good, and reports eating all meals. Patient describes getting 8 hours of sleep. Objective: Vital Signs Temp Pulse Resp BP Pulse Ox 36.3 C 65 14 99/54 L 96 06/23/18 16:00 06/24/18 00:30 06/24/18 00:30 06/24/18 00:30 06/24/18 00:30 NURSING REPORT: Consulted with nursing for update on patients progress in treatment. Nurses report patient is engaged in treatment, is attending groups, slept 8 hours, expresses the following psychiatric symptoms: moderate anxiety, exhibits the following psychiatric symptoms: disorganized, tangential, hyperactive, pressured; is eating all meals, is agreeable to medications and taking as prescribed with no report of side effects, with no s/s of EPS/ akathisia, and denies SI/HI, denies A/V hallucinations, and denies delusions. Nurses report patient was agreeable to Prolixin ALVARENGA yesterday afternoon. Patient continues to pace halls. HORSE SHOER UPDATE: setting up follow-up appointments at [facility] for patient to continue medication management and therapy after discharge. MSE: The patient is a well-nourished transgender female looking stated chronological age. Attire is inappropriate and dress is casual and hospital garb combination. Grooming status is inappropriate and disheveled. Ambulation is independent. Gait is normal and coordinated. Posture is normal and relaxed. Eye contact is inappropriate, and avoided. Motor activity is appropriate with purposeful, organized, coordinated movements; with no involuntary movements. Attitude is uncooperative and defensive. Patient appears distractible and does not relate well to this interviewer. Language production is spontaneous. Rate is pressured. Articulation is clear. Patient reports mood as okay with incongruent and expansive affect. Patients thought process is disorganized, non-linear, illogical, with loose associations, tangential thought. Patient does not report suicidal/homicidal thoughts, ideas , or plans. Patient denies auditory, visual hallucinations. Patient denies delusions. Patient does not appear to be attending to internal stimuli. Patients attention and concentration are poor. Patient is oriented to person, place, time. Patients insight is poor. Patients judgment is poor. No evidence of gross cognitive dysfunction at any point during the interview. No evidence of apparent dysfunction in recent or remote memory. - Time Spent With Patient Time Spent With Patient: 15 minutes, met with patient individually. - Pending Discharge Pending Discharge Within 24 Hours: No Pending Discharge Within 48 Hours: No ICD10 Worksheet Patient Problems: Problems Problem Status Onset Schizoaffective disorder, bipolar type Chronic Acute psychosis Acute Transgender Acute
[2018-06-24] MEDS: LORazepam 0.5 MG TAB PO PRN (11:01)
--- NOTE | 2018-06-24 11:37 | ASMTCMCOM ---
CM Note CM Note Notes: The patient requested additional towels and soap; her nurse was notified. She also requested Ativan stating, "I'm feeling pretty anxious." The nurse was notified and the medication was provided. The patient plans to discharge home on June 28. She agreed to take all of her prescribed medication. The patient was observed gesturing/moving in the hallway on multiple occasions. Date Signed: 06/24/2018 11:36 AM Electronically Signed By:Ifrah Hardin
--- NOTE | 2018-06-25 07:16 | SOAPPROG ---
SOAP Progress Note Assessment/Plan: Assessment: Schizoaffective disorder, bipolar type. Slight improvement noted. (see subjective/objective note). Patient is not safe to discharge at this time as patient continues to exhibit signs of psychosis, and express psychosis symptoms. Patient requires continued inpatient care because of current psychosis, and requires inpatient level of care to stabilize in order to no longer be gravely disabled due to mental illness. Patient could benefit from continued inpatient hospitalization for crisis stabilization, safety, and medication evaluation. Patient could benefit from therapeutic level of antipsychotic and lithium prior to discharge; lithium level Thursday prior to discharge. Plan: (1) Psychotropic medications: After reviewing options, risks, and benefits patient agrees to continue current medications. No medication changes at this time as more time is needed to determine ongoing tolerability and efficacy. Plan is to continue to observe patient for response and side effects from medications, and ongoing monitoring and evaluation. (2) Review with patient informed consent and recommendations for psychotropic medication treatment listed below (3) Labs: no additional labs at this time (4) Therapy: continue milieu and group therapy (5) Further investigation including gathering information from patients relatives and review of past case records to inform treatment plan. (6) Safety/Wellness plan and follow-up outpatient appointments to be established prior to discharge. Next steps are for patient to meet with critical care rn to plan a safe discharge plan and establish outpatient services for ongoing treatment. (7) Confer with inpatient treatment team regarding treatment plan. (8) Legal status: LT / [facility] (9) Consider discharge on Thursday if patient is in stable condition, safe, and has a safe discharge plan. PSYCHOTROPIC MEDICATION TREATMENT INFORMED CONSENT and RECOMMENDATIONS: Review nature of condition, diagnosis, and prognosis. Review nature and purpose of psychotropic medication treatment. Review type of psychotropic medications being ordered. Review risk and benefits of psychotropic medication treatment. Review probable length of time patient will need to take medications. Review risk and benefits of not undergoing psychotropic medication treatment. Review alternative treatments to psychotropic medications. Review psychotropic medications contraindications, drug-drug interactions, side effects, and importance of reporting any side effects to a psychiatric provider or nurse during inpatient hospitalization, and upon discharge to patients psychiatric outpatient provider, primary care provider, or other health manager career. Review importance of asking a nurse, psychiatric provider, or primary care provider any questions or problems concerning the psychotropic medications. Verify patient understands the information that has been provided, and understands, accepts, and agrees to psychotropic medications. Review patients safety plan and importance of patient to report to staff while hospitalized if patient is ever a danger to self/others, or unable to care for self, and upon discharge, the importance for patient to contact [facility] or [facility], or go to the nearest emergency room, if patient is ever a danger to self/others, or unable to care for self. Recommend that upon discharge patient establish medication management treatment with a psychiatric provider, establishes routine therapy appointments, and follow-up with primary care provider. Verify patient understands and agrees to these recommendations. 06/25/18 07:16 Subjective: Following up with patient for evaluation of psychosis, tata, and safety. Patient reports, "Still doing okay, and ready to discharge on Thursday. That is the day I can go right?" Patient expresses the following psychiatric symptoms moderate anxiety. Patient reports taking medications as prescribed, and describes response to medications as okay. Patient does not report undesirable side effects from the medications, and agrees to continue current medications. Patient reports appetite as good, and reports eating all meals. Patient describes getting 8 hours of sleep, and reports feeling rested. Objective: Vital Signs Temp Pulse Resp BP Pulse Ox 36.5 C 92 16 108/58 L 97 06/25/18 00:30 06/25/18 00:30 06/25/18 00:30 06/25/18 00:30 06/25/18 00:30 NURSING REPORT: Consulted with nursing for update on patients progress in treatment. Nurses report patient is engaged in treatment, is attending groups, slept 8 hours, expresses the following psychiatric symptoms: moderate anxiety, exhibits the following psychiatric symptoms: tangential, hyperactive, pressured , irritable; is eating all meals, is agreeable to medications and taking as prescribed with no report of side effects, with no s/s of EPS/akathisia, and denies SI/HI, denies A/V hallucinations, and denies delusions. Patient continues to be irritable and intrusive with staff; hyperactive, pacing halls. [employer] UPDATE: setting up follow-up appointments at [facility] for patient to continue medication management and therapy after discharge. MSE: The patient is a well-nourished transgender female looking stated chronological age. Attire is inappropriate and dress is casual and hospital garb combination. Grooming status is inappropriate and disheveled. Ambulation is independent. Gait is normal and coordinated. Posture is normal and relaxed. Eye contact is inappropriate, and avoided. Motor activity is appropriate with purposeful, organized, coordinated movements; with no involuntary movements. Attitude is uncooperative and defensive. Patient appears distractible, irritable and does not relate well to this interviewer. Language production is spontaneous. Rate is pressured. Articulation is clear. Patient reports mood as okay with incongruent and expansive, irritable, agitated affect. Patients thought process is organized, linear, logical, with no loose associations, tangential thought. Patient does not report suicidal/ homicidal thoughts, ideas, or plans. Patient denies auditory, visual hallucinations. Patient denies delusions. Patient does not appear to be attending to internal stimuli. Patients attention and concentration are poor. Patient is oriented to person, place, time. Patients insight is poor. Patients judgment is poor. No evidence of gross cognitive dysfunction at any point during the interview. No evidence of apparent dysfunction in recent or remote memory. - Time Spent With Patient Time Spent With Patient: 15 minutes, met with patient individually. - Pending Discharge Pending Discharge Within 24 Hours: No Pending Discharge Within 48 Hours: No ICD10 Worksheet Patient Problems: Problems Problem Status Onset Schizoaffective disorder, bipolar type Chronic Acute psychosis Acute Transgender Acute
[2018-06-25] MEDS: LITHIUM CARBONATE ER 300 MG TAB PO SCH (08:58)
[2018-06-25] MEDS: BENZTROPINE MESYLATE 1 MG TAB PO SCH ×2 (08:59→20:34)
[2018-06-25] MEDS: LORazepam 0.5 MG TAB PO PRN (09:59)
[2018-06-26] MEDS: BENZTROPINE MESYLATE 1 MG TAB PO SCH ×2 (08:05→19:55)
[2018-06-26] MEDS: LITHIUM CARBONATE ER 300 MG TAB PO SCH (08:05)
--- NOTE | 2018-06-26 10:39 | PDMN ---
Medical Necessity [place] [facility] [id number] Schizophrenia Spectrum Disorders, Adult: Inpatient Care: 32 yo w/ schizoaffective d/o, bipolar type, presents to hospital involuntarily due to being gravely disabled, acute psychosis on M1 hold.
--- NOTE | 2018-06-26 16:49 | SOAPPROG ---
SOAP Progress Note Assessment/Plan: Assessment: Schizoaffective disorder, bipolar type. Slight improvement noted. (see subjective/objective note). Patient is not safe to discharge at this time as patient continues to exhibit signs of psychosis, and express psychosis symptoms. Patient requires continued inpatient care because of current psychosis, and requires inpatient level of care to stabilize in order to no longer be gravely disabled due to mental illness. Patient could benefit from continued inpatient hospitalization for crisis stabilization, safety, and medication evaluation. Patient could benefit from therapeutic level of antipsychotic and lithium prior to discharge; lithium level Thursday prior to discharge. PLAN: 06/26/18 16:45 1. Patient received IM Prolixin 25mg on 06/23/18, per his COM. 2. He has taken [place] 1,500mg QHS since admission per his COM. 3. [place] level is scheduled tomorrow. 4. Possible d/c on Thursday. Subjective: Patient is pacing the halls smiling without any apparent reason. He is wearing long underwear, bright socks, running shorts, a sweater and a wool blazer. He's dressed inappropriately for the weather which is [place] and 70 deg outside. Staff report he was quite agitated and irritable earlier in week. Today he is much calmer, not yelling or throwing things in his room like a few days ago. He slept 6 hrs last night and ate 100% of meals today. Objective: Vital Signs Temp Pulse Resp BP Pulse Ox 36.6 C 77 16 108/62 97 06/26/18 00:30 06/26/18 12:07 06/26/18 12:07 06/26/18 12:07 06/26/18 12:07 MSE: Affect: Smiling inappropriately Mood: "OK" TP: Loose TC: Denies any SI /HI Insight/Judgment: Poor - Time Spent With Patient Time Spent With Patient: 15" - Pending Discharge Pending Discharge Within 24 Hours: No Pending Discharge Within 48 Hours: Yes Pending Discharge Date: 06/28/18 (Possible d/c on Thursday) Pending Discharge Time: 11:00 ICD10 Worksheet Patient Problems: Problems Problem Status Onset Schizoaffective disorder, bipolar type Chronic Acute psychosis Acute Transgender Acute
[2018-06-26] MEDS: LORazepam 0.5 MG TAB PO PRN (20:05)
[2018-06-27] MEDS: LITHIUM CARBONATE ER 300 MG TAB PO SCH (07:28)
[2018-06-27] MEDS: BENZTROPINE MESYLATE 1 MG TAB PO SCH ×2 (07:28→20:02)
--- NOTE | 2018-06-27 14:28 | ASMTBHDC ---
Notes Note: Notes: Pt. reports feeling "good". Pt. stated she slept "well" and is eating well. Pt. reports no issues with her current medications. Pt. stated she is attending groups, adding "I had fun during groups". Pt. stated she believes she is discharging on Thursday and will return to her apartment. Pt. stated she can take the bus home. Pt. stated she can get herself to her follow up appointments, she just needs to know when they are. Pt. denied SI, HI, AVH and paranoia. [facility] (Cristela Baxter [phone]) called and wants to help coordinate pt' ride at discharge. Pt. stated she is fine with her mom helping with a ride. Pt. presents as alert, cooperative but at times passive, and with good eye contact. Staff report pt saying, "[I] no longer have delusions", and "[I'm] more rational and organized". Staff report pt. sleeping 9 hours and being medication compliant. Pt's follow up appointments are: [facility] Next Appointment with Sophia Lockwood, adoption services manager, on June 29 @ 11:00 at [facility]. [address] [place] [address] Dr. Hendrickson next appointment: Thursday (07/09/18) at 12:15pm, check in at 12:00pm Date Signed: 06/27/2018 02:27 PM Electronically Signed By:Pita Roper
[2018-06-27] MEDS: LORazepam 0.5 MG TAB PO PRN (15:25)
--- NOTE | 2018-06-27 15:49 | SOAPPROG ---
SOAP Progress Note Assessment/Plan: Assessment: Schizoaffective disorder, bipolar type. Slight improvement noted. (see subjective/objective note). Patient is not safe to discharge at this time as patient continues to exhibit signs of psychosis, and express psychosis symptoms. Patient requires continued inpatient care because of current psychosis, and requires inpatient level of care to stabilize in order to no longer be gravely disabled due to mental illness. Patient could benefit from continued inpatient hospitalization for crisis stabilization, safety, and medication evaluation. Patient could benefit from therapeutic level of antipsychotic and lithium prior to discharge; lithium level Thursday prior to discharge. PLAN: 06/26/18 16:45 1. Patient received IM Prolixin 25mg on 06/23/18, per his COM. 2. He has taken [place] 1,500mg QHS since admission per his COM. 3. [place] level is scheduled tomorrow. 4. Possible d/c on Thursday. PLAN: 06/27/18 15:45 1. [place] level scheduled in AM. 2. No change 3. CCM 4. Possible d/c early this week Subjective: Patient's presentation hasn't changed much over w/e. She is still pacing the halls and wearing bizarre clothes (long underwear, colorful shorts/socks, and wool blazer). Patient seems internally preoccupied. She smiles inappropriately, gestures while walking as though she's having an internal conversation with herself. Objective: Vital Signs Temp Pulse Resp BP Pulse Ox 36.6 C 80 16 130/71 H 98 06/27/18 08:55 06/27/18 08:55 06/27/18 08:55 06/27/18 08:55 06/27/18 08:55 MSE: Affect: Smiling inappropriately Mood: "OK" TP: Disorganized, tangential TC: Denies SI/HI Insight/Judgment: Poor - Time Spent With Patient Time Spent With Patient: 15" - Pending Discharge Pending Discharge Within 24 Hours: No Pending Discharge Within 48 Hours: No ICD10 Worksheet Patient Problems: Problems Problem Status Onset Schizoaffective disorder, bipolar type Chronic Acute psychosis Acute Transgender Acute
[2018-06-28 06:51] VITALS: BP 109/56
[2018-06-28] MEDS: LITHIUM CARBONATE ER 300 MG TAB PO SCH (08:27)
[2018-06-28] MEDS: LORazepam 0.5 MG TAB PO PRN ×2 (08:27→08:30)
[2018-06-28] MEDS: BENZTROPINE MESYLATE 1 MG TAB PO SCH (08:27)
--- NOTE | 2018-06-28 08:53 | ASMTBHDC ---
Notes Note: Notes: CC confirmed client's follow up plan: Follow up with: [facility] [address] [place] [address] Next Appointment with Sophia Lockwood, manager route, on June 29 @ 11:00 at [facility]. [facility] [address] [place] [address] Dr. Hendrickson next appointment: Thursday (07/09/18) at 12:15pm, check in at 12:00pm Date Signed: 06/28/2018 08:52 AM Electronically Signed By:Pete Hernandez
--- NOTE | 2018-06-28 15:11 | BDS ---
REASON FOR ADMISSION: From the ED note dated 06/22/2018, patient with a history of schizoaffective disorder with frequent ED visits and psychiatric hospitalizations arrived to the emergency department by police department on an M1 hold placed by [facility]. Patient is on a long-term certification and court-ordered medications, and has not been compliant with his court-ordered medications. Patient is increasingly aggressive and hyperactive. Patient was admitted involuntarily, is on a long-term certification and court-ordered medications, and is admitted due to being gravely disabled due to a mental illness and medication nonadherence. The patient was admitted for safety, crisis stabilization, and medication evaluation. ADMITTING DIAGNOSES: 1. Schizoaffective disorder, bipolar type. 2. Non-adherence to medical treatment. ADMISSION PHYSICAL EXAM: The patient was seen on 06/23/2018, by Dr. Hendrickson for an Internal Medicine consultation for medical clearance for inpatient Behavioral Health stay. Dr. Hendrickson reported he saw no medical contraindications to the patient's continued stay on the inpatient behavioral health unit or to any psychiatric medications or procedures. For further details, please refer to Dr. Hendrickson's Internal Medicine consultation note. ADMISSION LABS: CBC was normal. Metabolic profile revealed normal renal function and electrolytes. Hemoglobin A1c was normal at 5.3. Lipid panel revealed a low cholesterol at 108, low LDL at 61, and low HDL at 33. Toxicology screen in the serum was negative for ethyl alcohol and in the urine was negative for substances of abuse. Colma trough level from 06/28/18 prior to AM dose: 0.8. MAJOR PROCEDURES/TESTS: None. HOSPITAL COURSE: The most prominent symptoms and behaviors while the patient was here were disorganized behavior, disorganized thought process, hyperactivity , pacing halls, intrusive to staff. Treatment modalities utilized were milieu and group therapy. Prolixin 25 mg IM ALVARENGA was administered on 06/23/2018, to target psychosis and mood symptoms, was tolerated with no report of side effects and with good response. Colma ER 1500 mg p.o. daily was continued to target mood symptoms, was tolerated with no report of side effects and with good response. Cogentin 1 mg po BID was started to target prophylactic EPS symptoms, was tolerated with no report of side effects and with good response. Patient has improved considerably. Patient reports improvement since admission , states to be in stable condition, feels safe to discharge and contracts for safety. Patient's overall response to treatment was good. There were no adverse or unexpected results of treatment. The patient was safe throughout stay, active in treatment, engaged in groups, and was appropriate with staff and other patients. The patient met with the treatment team prior to discharge to assess readiness to discharge and reviewed discharge plan. The treatment team consensus is the patient is in stable condition, has a safe discharge plan and is ready to discharge today. CONDITION AT DISCHARGE: Patient is in stable condition and is no longer a danger to self or others, and is not gravely disabled due to a mental illness. The patient is no longer in need of inpatient level of care and can safely and effectively be treated within the community. Patient's level of risk at time of discharge is low. MENTAL STATUS EXAMINATION: The patient is an undernourished, transgender female, preferring female pronouns. Patient looks stated chronological age. Attire is appropriate. Dress is casual, neat, and clean. Grooming status is inappropriate and disheveled. Ambulation is independent. Gait is normal and coordinated. Posture is normal and relaxed. Eye contact is appropriate and adequate. Motor activity is appropriate with purposeful, organized, coordinated movements with no involuntary movements noted. Attitude is cooperative and friendly. Patient appears attentive and relates well to this interviewer. Language production is spontaneous. Rate is fluent. Latency of response is adequate with variable tone, appropriate volume , and amount is appropriate. Articulation is clear. Patient reports mood as okay with fairly appropriate, yet expansive affect. Patient's thought process is linear and logical with no loose associations, tangential thought, thought blocking, concrete thinking, or any other signs of formal thought disorder. Patient does not report suicidal, homicidal thoughts, ideas, or plans. Patient denies auditory, visual hallucinations. Patient denies delusions. Patient does not appear to be attending to internal stimuli. Patient is oriented to person, place, time, and situation. Patient's attention and concentration are adequate. The patient's insight and judgment are fair. There is no evidence of gross cognitive dysfunction at any point during the interview and no evidence of apparent dysfunction in recent or remote memory noted. The patient does not report undesirable side effects from current medications. DISCHARGE DIAGNOSIS: Schizoaffective disorder, bipolar type. CURRENT MEDICATIONS: After reviewing options, risks, and benefits the patient agrees to continue lithium ER 1500 mg p.o. daily and Cogentin 1 mg p.o. b.i.d. Patient also agrees to follow up with outpatient psychiatrist at [facility] for ongoing Prolixin long-acting injectable maintenance. Patient requests prescriptions for medications at time of discharge. The prescriptions are called in to [facility] per [facility] request for the medications to be packaged in weekly bubble packs as the patient is part of the [facility] on the second floor of the [facility] through [facility] and will continue to be evaluated and have medications managed through [facility]. Prescriptions for 30 days are provided. Prescriptions are reviewed with the patient at time of discharge to ensure accuracy and patient understanding. DISPOSITION: Patient left hospital independently and voluntarily and plans return to home after first going to a court date that is scheduled for today at 1 p[address] Patient is aware of this court date and plans to go to the court day and return home to [place], [place] this afternoon and follow up at [facility] for ongoing medication management and evaluation. FOLLOWUP: food service coordinator reports the appropriate outpatient follow-up services have been established and outpatient appointments have been scheduled. The patient received written instructions with times and dates of outpatient follow-up appointments. The following follow-up recommendations were provided to the patient at discharge: Continue psychotropic medications as prescribed and attend appointments as scheduled. Report any side effects to a psychiatric outpatient provider, a primary care provider, or other health healthcare account manager. Address any questions or problems concerning the psychotropic medications with a psychiatric outpatient provider, a primary care provider, or other health healthcare account manager. Contact [facility] or [facility], or go to the nearest emergency room, if you are ever a danger to yourself/others, or unable to care for yourself. As soon as possible, establish a routine medication management treatment with a psychiatric provider, establish routine therapy appointments, and follow-up with a primary care provider. LEGAL COURSE: Patient was admitted involuntarily place. The patient is on a long-term certification for court-ordered treatment and also court-ordered medications. The long-term certification was transferred back to [facility] Winslow, psychiatrist, at time of discharge today. ATTITUDE AT TIME OF DISCHARGE: The patients attitude was positive at time of discharge, and patient reports looking forward to discharging today. The patient reports he feels safe to discharge, is no longer a danger to self or others, is in stable condition, and contracts for safety. Patient states will continue medications as prescribed, and establish medication management treatment with an outpatient provider after discharge. Patient reports understands the information that has been provided, and understands, accepts, and agrees to psychotropic medications. Patient describes internal protective factors as the coping skills learned while hospitalized here, and plans to continue to practice these coping skills after discharge. LABORATORY/RADIOLOGY STUDIES: There were no pending labs or studies at time. ADVANCED DIRECTIVES: There were no advance directives on file and the patient was full code during this hospitalization. The following psychotropic medication treatment informed consent and recommendations were provided to the patient at time of discharge. Patient reports he understands, accepts, and agrees to the information that has been provided. PSYCHOTROPIC MEDICATION TREATMENT INFORMED CONSENT and RECOMMENDATIONS: Review nature of condition, diagnosis, and prognosis. Review nature and purpose of psychotropic medication treatment. Review type of psychotropic medications being prescribed. Review risk and benefits of psychotropic medication treatment. Review probable length of time will need to take medications. Review risk and benefits of not undergoing psychotropic medication treatment. Review alternative treatments to psychotropic medications. Review psychotropic medications contraindications, side effects, and importance of reporting any side effects to a psychiatric provider, primary care provider, or other health healthcare account manager. Review importance of asking a psychiatric provider or primary care provider any questions or problems concerning the psychotropic medications. Review safety plan and the importance to contact [facility] or [facility] , or go to the nearest emergency room, if ever a danger to yourself/others, or unable to care for yourself. Recommend upon discharge to establish routine medication management treatment with a psychiatric provider, establish routine therapy appointments, and follow-up with a primary care provider. Verify patient understands, accepts, and agrees to the information that has been provided. /[id number]/MODL MTDD
== END 2018-06-28 11:02 | disposition home or self-care (01) | DRG 885 ==
LOC: BBEH 21:20
PROVIDERS: ADMIT Psychiatry & Neurology Behavioral Neurology & Neuropsychiatry; ATTEND Registered Nurse
DX: F25.0 Schizoaffective disorder, bipolar type (principal); Z91.14 Patient's other noncompliance with medication regimen; F17.210 Nicotine dependence, cigarettes, uncomplicated; F64.0 Transsexualism
CPT/HCPCS: 80305; G0480; J2680

== ENCOUNTER 2018-06-29 09:08 | Emergency (ER) | payer OTHER, MEDICAID ==
[2018-06-29 09:19] VITALS: BP 142/93
[2018-06-29] MEDS ORDERED: LORazepam 1 MG TAB PO ONE ×2 (09:36→09:37)
--- NOTE | 2018-06-29 09:40 | EDPHY ---
H & P Time Seen by Provider: 06/29/18 09:18 HPI/ROS: This patient was discharged yesterday from the hospital after an M1 hold with history of schizoaffective disorder started back on his medications with resolution of his acute psychiatric symptoms. He was discharged yesterday afternoon but reports that they forgot to provide an Ativan script. He had breakfast this morning but is anxious. He plans to get on the bus to travel to [facility] in [place] to warehouse order picker the rest of his prescriptions but requests a dose of Ativan prior to that. He review of his prior record indicates that he has been on Ativan prior to admission and apparently during admission. He denies any other complaints besides his anxiety at this time. ROS: Constitutional: No fevers HEENT: No complaints new line pulmonary: No dyspnea Cardiovascular: No heart palpitations lightheadedness Neuro: No headache or focal neuro symptoms Psychiatric: Patient admits anxiety. He denies any homicidal ideation, suicidal ideation or other acute psychiatric symptoms. 7 point review of symptoms is performed and otherwise negative with exception of pertinent positives and negatives listed in HPI and ROS Smoking Status: Current every day smoker Physical Exam: General Appearance: Alert, no distress. Eyes: Pupils equal and round no pallor or injection. ENT, Mouth: Mucous membranes moist. Respiratory: There are no retractions, lungs are clear to auscultation. Cardiovascular: Regular rate and rhythm. Neurological: GCS 15 Skin: Warm and dry, no rashes. Musculoskeletal: Neck is supple nontender. Extremities are symmetrical, full range of motion. Psychiatric: Mood and affect are normal this time. All the patient reports anxiety he maintains logical thought content with no pressured speech, flights of ideas, psychotic symptoms or other at this time. DIFFERENTIAL DIAGNOSIS: After history and physical exam differential diagnosis was considered for anxiety, panic, bipolar Constitutional: Initial Vital Signs Temperature (C) 37 C 06/29/18 09:16 Heart Rate 98 06/29/18 09:16 Respiratory Rate 18 06/29/18 09:16 Blood Pressure 142/93 H 06/29/18 09:16 O2 Sat (%) 96 06/29/18 09:16 O2 Delivery Mode Room Air Allergies/Adverse Reactions: No Known Allergies Allergy (Verified 06/29/18 09:15) Home Medications: Medication Instructions Recorded Propranolol HCl [Inderal 10mg (*)] 10 mg PO BID 06/22/18 Acetaminophen [Tylenol 325mg (*)] 650 mg PO Q4HRS PRN tab 06/28/18 Benztropine Mesylate [Cogentin] 1 mg PO BID 30 Days #60 tab 06/28/18 [place] Carbonate ER [Lithobid 300 1,500 mg PO DAILY 30 Days #150 tab 06/28/18 mg (*)] MDM/Departure - MDM Medications Given: Discontinued Medications Lorazepam (Ativan) 1 mg PO EDNOW ONE Stop: 06/29/18 09:37 Last Admin: 06/29/18 09:40 Dose: 1 mg ED Course/Re-evaluation: Ativan 1 mg p.o. Discussion: Patient here with anxiety without psychotic symptoms, suicidal ideation, homicidal ideation or other red flag symptoms at this time treated with Ativan on his way to warehouse order picker the rest of his psychiatric medications. - Depart Disposition: Home, Routine, Self-Care Clinical Impression: Anxiety Condition: Good Instructions: Anxiety (ED) Additional Instructions: Diagnosis: Anxiety Plan: He received a dose of Ativan here in the emergency department. Proceed directly to [facility] to the rest of your medications thereafter. Return emergency department for any significant worsening despite the treatment plan Referrals: Barry Tyler MD [Primary Care Provider] - As per Instructions
== END 2018-06-29 09:50 | disposition home or self-care (01) ==
LOC: CED 09:08
DX: F41.9 Anxiety disorder, unspecified (principal); F25.9 Schizoaffective disorder, unspecified

== ENCOUNTER 2018-08-04 17:43 | Emergency (ER) | payer OTHER, MEDICAID ==
[2018-08-04 17:59] VITALS: BP 134/87
--- NOTE | 2018-08-04 18:15 | EDPHY ---
H & P Time Seen by Provider: 08/04/18 18:03 HPI/ROS: This patient describes increased anxiety over the past 6 weeks or so. He states that he did have good control of his anxiety on Klonopin in the past but has run out. He normally took 2 mg once a day or twice a day depending on the severity of his anxiety. He also reports that he is low on his lithium and requests a refill. He admits that he feels some agitation with this anxiety but denies any other psychiatric symptoms. He states that he still able to sleep well. Family is staying with him for 2 weeks and feels that this is beneficial. ROS: Constitutional: No fevers HEENT: No complaints new line neuro: No headache. No focal numbness tingling weakness. Psychiatric: He denies any suicidal ideation homicidal ideation or psychotic symptoms this time. He denies any insomnia. He denies any impulsive behavior Pulmonary: No complaints Cardiovascular: No complaints GI: No complaints 7 point review of symptoms is performed and otherwise negative with exception of pertinent positives and negatives listed in HPI and ROS Social History: Currently no alcohol or drug use. Smoking Status: Current every day smoker Physical Exam: Vital signs normal exception of mild hypertension 134/87 General Appearance: Alert, no distress. Eyes: Pupils equal and round no pallor or injection. ENT, Mouth: Mucous membranes moist. Respiratory: There are no retractions, lungs are clear to auscultation. Cardiovascular: Regular rate and rhythm. Gastrointestinal: Abdomen is soft and nontender, no masses, bowel sounds normal. Neurological: GCS 15 Skin: Warm and dry, no rashes. Extremities are symmetrical, full range of motion. Psychiatric: Currently mood and affect are normal. He does not have pressured speech. He has logical thought content, is pleasant and cooperative. No psychotic symptoms. DIFFERENTIAL DIAGNOSIS: After history and physical exam differential diagnosis was considered for anxiety, panic, increase in bipolar symptoms Constitutional: Initial Vital Signs Temperature (C) 36.9 C 08/04/18 17:51 Heart Rate 92 08/04/18 17:51 Respiratory Rate 18 08/04/18 17:51 Blood Pressure 134/87 H 08/04/18 17:51 O2 Sat (%) 97 08/04/18 17:51 O2 Delivery Mode Room Air Allergies/Adverse Reactions: antipsychotics Allergy (Uncoded 08/04/18 17:50) Home Medications: Medication Instructions Recorded [place] Carbonate ER [Lithobid 300 1,500 mg PO DAILY 30 Days #150 tab 06/28/18 mg (*)] [place] Carbonate ER [Lithobid 300 1,500 mg PO DAILY #50 tab 08/04/18 mg (*)] clonazePAM [Klonopin] 2 mg PO BID PRN #30 tablet 08/04/18 MDM/Departure - [facility] ED Course/Re-evaluation: We provided the Dr. Barraza's phone number-psychiatrist on-call to facilitate close follow-up with psychiatrist. Also suggested follow-up with primary care physician. Did provide a Klonopin script an additional lithium a since he said he is running low on lithium. Currently he does not have clinical findings that suggest a manic episode, psychotic symptoms, ideas of self-harm or harm to others or other red flag findings. However he understands need to return emergency department should he develop any worsening symptoms. - Depart Disposition: Home, Routine, Self-Care Clinical Impression: Anxiety Condition: Good Instructions: Anxiety (ED) Additional Instructions: Diagnosis: Anxiety Plan: Continue her lithium and start Klonopin as needed for anxiety Make an appointment to see your primary care physician and also call Dr. Barraza- psychiatrist to make a follow up appointment this week and establish a new psychiatrist. Return to the emergency department for any worsening symptoms despite the treatment plan Prescriptions: clonazePAM [Klonopin] 2 mg PO BID PRN #30 tablet PRN Reason: Anxiety [place] Carbonate ER [Lithobid 300 mg (*)] 1,500 mg PO DAILY #50 tab Referrals: Barry Tyler MD [Primary Care Provider] - As per Instructions Rai Barraza MD [Medical Doctor] - As per Instructions
== END 2018-08-04 18:25 | disposition home or self-care (01) ==
LOC: CED 17:43
DX: F41.9 Anxiety disorder, unspecified (principal); F17.200 Nicotine dependence, unspecified, uncomplicated

== ENCOUNTER 2018-08-22 07:35 | Emergency (ER) | payer OTHER, MEDICAID ==
[2018-08-22 07:46] VITALS: BP 105/69
--- NOTE | 2018-08-22 07:55 | EDPHY ---
H & P Stated Complaint: anxiety,restlessness Time Seen by Provider: 08/22/18 07:37 HPI/ROS: Chief Complaint: Anxiety HPI: 32-year-old male with known history of anxiety is presenting complaining of worsening anxiety after running out of his clonazepam. Patient was here on the of last month got a prescription for 30 tablets. He states he has an appointment with his psychiatrist at [facility] in 8 days and is requesting a prescription to get him to that appointment. He states he lost some of his last prescription. He denies being suicidal or homicidal. He denies hallucinations. He has multiple visits to this emergency department for medication refills in the past. He has not followed up with [facility] since his last visit here. ROS: 10 systems were reviewed and were negative except those elements noted in the HPI. PMH: Anxiety Social History: No smoking, no alcohol, no recreational drug use Family History: non-contributory Physical Exam: Gen: Awake, Alert, No Distress HEENT: Nose: no rhinorrhea Eyes: PERRLA, EOMI Mouth: Moist mucosa Neck: Supple, no JVD Chest: nontender, lungs clear to auscultation Heart: S1, S2 normal, no murmur Abd: Soft, non-tender, no guarding Back: no CVA tenderness, no midline tenderness Ext: no edema, non-tender Skin: no rash Neuro: CN II-XII intact, Sensation grossly intact, Strength 5/5 in bilateral upper and lower extremities - Personal History Current Tetanus Diphtheria and Acellular Pertussis (TDAP): Yes Tetanus Vaccine Date: JANUARY 2013 - Medical/Surgical History Hx Asthma: No Hx Chronic Respiratory Disease: No Hx Diabetes: No Hx Cardiac Disease: No Hx Renal Disease: No Hx Cirrhosis: No Hx Alcoholism: No Hx HIV/AIDS: No Hx Splenectomy or Spleen Trauma: No Other PMH: ADD, schizophrenia,bipolar tata - Social History Smoking Status: Current every day smoker Constitutional: Initial Vital Signs Temperature (C) 36.8 C 08/22/18 07:41 Heart Rate 83 08/22/18 07:41 Respiratory Rate 18 08/22/18 07:41 Blood Pressure 105/69 08/22/18 07:41 O2 Sat (%) 98 08/22/18 07:41 Allergies/Adverse Reactions: antipsychotics Allergy (Uncoded 08/22/18 07:40) Home Medications: Medication Instructions Recorded [place] Carbonate ER [Lithobid 300 1,500 mg PO DAILY 30 Days #150 tab 06/28/ mg (*)] [place] Carbonate ER [Lithobid 300 1,500 mg PO DAILY #50 tab 08/04/18 mg (*)] Medical Decision Making ED Course/Re-evaluation: 32-year-old male presenting requesting benzodiazepines. Patient is here on the of last month with the same complaint in received a prescription for 30 tablets at that time. He has not followed up with [facility]. I have explained to him that if he continues to present to the emergency department to get prescriptions for controlled substances this will raise red flags and cause problems for him getting these medications in the future. Is absolutely necessary for him to follow up with his mental health provider to get his prescription medications. I have also let him know that [facility] crisis [facility] is available to 24 hr a day 7 days a week and he can present that any time for any concerns. He is currently not suicidal. He is not gravely disabled. I have encouraged him to follow up with [facility] today or tomorrow. I will send him home with a couple of to go tablets here but will not be writing any prescriptions today. He will follow up as recommended. Departure - Departure Disposition: Home, Routine, Self-Care Clinical Impression: Anxiety Condition: Good Instructions: Anxiety (ED), Clonazepam (By mouth) Additional Instructions: Follow up with [facility] today or tomorrow for assistance with your anxiety medications. Referrals: [facility],. [Clinic] - As per Instructions
[2018-08-22] MEDS ORDERED: clonazePAM 1 MG TAB PO ONE (07:58)
== END 2018-08-22 08:06 | disposition home or self-care (01) ==
LOC: CED 07:35
DX: F41.9 Anxiety disorder, unspecified (principal)

== ENCOUNTER 2019-01-08 20:29 | Emergency (ER) | payer MEDICAID, OTHER ==
[2019-01-08 21:37] LABS: PLATELET COUNT 270 10^3/uL (150-400)
--- NOTE | 2019-01-09 01:17 | EDPHY ---
H & P Stated Complaint: M1 - Personal History Current Tetanus/Diphtheria Vaccine: Unsure Current Tetanus Diphtheria and Acellular Pertussis (TDAP): Unsure Tetanus Vaccine Date: JANUARY 2013 - Medical/Surgical History Hx Asthma: No Hx Chronic Respiratory Disease: No Hx Diabetes: No Hx Cardiac Disease: No Hx Renal Disease: No Hx Cirrhosis: No Hx Alcoholism: No Hx HIV/AIDS: No Hx Splenectomy or Spleen Trauma: No Other PMH: ADD, schizophrenia,bipolar tata - Social History Smoking Status: Current every day smoker Time Seen by Provider: 01/08/19 20:57 HPI/ROS: Chief complaint: Mental health hold History of present illness: This is a 33-year-old male brought to the emergency department by EMS and police on a mental health hold. Patient apparently was found in the street after painting himself with paint and carrying bottles of paint thinners. Patient did not want to explain why he was doing this. On my evaluation he states he needs lithium. He states he is manic. He does not want to answer further questions. He is somewhat belligerent. Review of systems: Unable to obtain (William Oliveros) - Physical Exam Exam: General Appearance: Alert, somewhat belligerent. Eyes: Pupils equal and round no pallor or injection. ENT, Mouth: Mucous membranes moist. Respiratory: There are no retractions, lungs are clear to auscultation. Cardiovascular: Regular rate and rhythm. Gastrointestinal: Abdomen is soft and non tender, no masses, bowel sounds normal. Neurological: Alert. Purposeful movements of his extremities. Skin: Warm and dry, no rashes. Musculoskeletal: Neck is supple non tender. Extremities are symmetrical, full range of motion. Psychiatric: Laughing to himself. Belligerent with those around him. (William Oliveros) Constitutional: Initial Vital Signs Temperature (C) 36.8 C 01/08/19 20:40 Heart Rate 90 01/08/19 20:40 Respiratory Rate 18 01/08/19 20:40 Blood Pressure 109/71 01/08/19 20:40 O2 Sat (%) 98 01/08/19 20:40 O2 Delivery Mode Room Air Allergies/Adverse Reactions: antipsychotics Allergy (Uncoded 01/08/19 20:39) Home Medications: Medication Instructions Recorded Brandon Carbonate ER [Lithobid 300 1,500 mg PO DAILY 30 Days #150 tab 06/28/18 mg (*)] Medical Decision Making ED Course/Re-evaluation: Patient seen under the supervision of my primary supervising physician Dr. Consuelo Goldstein. Patient is brought in on a mental health hold. He is nontoxic. He is belligerent and non communicative. He has been evaluated and cleared for psychiatric evaluation. This is pending at time of dictation. Care of patient turned over to Dr. Franklyn Squires at end of shift. (William Oliveros) 0708AM: Patinet sleeping. NAD. Vss. Resting comfortably. Signed over at 7am to Dr. Hale. (Franklyn Squires) Differential Diagnosis: Included but not limited to polysubstance abuse, schizophrenia, bipolar (William Oliveros) Other Provider: Care assumed at 6:34 a.m. For this patient with history of schizoaffective disorder, bipolar type per discharge summary dated 06/28/2018. He has a mental health hold and is awaiting psychiatric placement. 1220: Patient had mental health evaluation and is recommended he be discharged. He apparently has long history of medication noncompliance and not appear at this time to be suicidal homicidal or danger to himself or others. Personally examined the patient at this time. He is cooperative and not belligerent. His plans to go to a friend's house in [place]. Recommendation of the project manager process development and Dr. Barraza is to release the patient off his mental health hold. (Krystian Hale) - Data Points Laboratory Results: Laboratory Results 01/08/19 21:25 01/08/19 21:25 Departure - Departure Disposition: Home, Routine, Self-Care Clinical Impression: Schizoaffective disorder, bipolar type Condition: Fair Instructions: Schizoaffective Disorder (ED) Referrals: [facility],. [Clinic] - As per Instructions
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
--- NOTE | 2019-01-09 12:38 | ASMTTCLDSP ---
[facility] Discharge Disposition Disposition: Answers: Discharge If Answers: Yes DISCHARGED: Patient/family given suicide hotline info & [facility] brochure? Disposition Notes: Notes: In consultation with [facility] ED physician, Krystian Hale MD, and on-call psychiatrist, Rai Barraza MD, both concurred that pt does not appear to meet 27-65 criteria requiring psychiatric hospitalization as pt does not appear to be an imminent risk of harm to self/others/gravely disabled due to a mental illness condition. Dr. Rai Barraza provided telephone order read back vacating M1 hold at 12:00 hrs. Pt was given local hotline information and [facility] brochure After an Attempt and encouraged to follow up with [facility]. [facility] called [facility] to provide update on pt.s ED visit and request follow up by his clinicians. Was patient given the Answers: Not applicable Inpatient Behavioral Health Prohibited Belongings List while in the ED? Date and time M1 hold 01/09/2019 12:00 PM vacated (time format is hh:mm): Type of Hold: Answers: M1/72-hour Hold Hold initiated by: Answers: Police Date Signed: 01/09/2019 12:37 PM Electronically Signed By:Radha Ramon
[2019-01-09 12:39] VITALS: BP 119/65
== END 2019-01-09 12:41 | disposition home or self-care (01) ==
LOC: EEVIPCON 20:29
PROC: GZ11ZZZ Psychological Tests, Personality and Behavioral (ICD-10-PCS; principal; 2019-01-08)
DX: F25.0 Schizoaffective disorder, bipolar type (principal)
CPT/HCPCS: 80305; G0480

== ENCOUNTER 2019-02-28 09:11 | Inpatient (IN) | payer OTHER | END 2019-03-04 13:20 | disposition home or self-care (01) | LOC: BBEH 13:10 ==